=== PATIENT | female | born 1935 | race Caucasian/White ===

== ENCOUNTER 2016-04-13 20:09 | Outpatient (CLI) | payer MEDICARE | END 2016-04-13 20:10 | disposition home or self-care (01) | DX: Z53.9 Procedure and treatment not carried out, unspecified reason (principal) ==

== ENCOUNTER 2016-04-14 08:39 | Outpatient (CLI) | payer MEDICARE | END 2016-04-14 08:40 | disposition home or self-care (01) | DX: J90 Pleural effusion, not elsewhere classified (principal); I10 Essential (primary) hypertension; R41.82 Altered mental status, unspecified ==

== ENCOUNTER 2016-05-28 18:41 | Emergency (ER) | payer MEDICARE ==
[2016-05-28] MEDS ORDERED: BACITRACIN OINT TOP STA (20:14)
[2016-05-28] MEDS ORDERED: TETANUS/DIPHTHERIA/PERTUSSIS 0.5 ML SYRINGE IM ONE ×2 (20:14→20:19)
[2016-05-28] MEDS ORDERED: AMOX/CLAV 875 MG/125 MG TABLET PO STA (21:48)
[2016-05-28] MEDS ORDERED: AMOX/CLAV 875 MG/125 MG TABLET PO ONE (21:55)
== END 2016-05-28 22:02 | disposition home or self-care (01) ==
DX: S00.83XA Contusion of other part of head, initial encounter (principal); S00.211A Abrasion of right eyelid and periocular area, initial encounter; W01.198A Fall on same level from slipping, tripping and stumbling with subsequent striking against other object, initial encounter; Y93.K1 Activity, walking an animal; Y92.89 Other specified places as the place of occurrence of the external cause; Z23 Encounter for immunization; J32.0 Chronic maxillary sinusitis; I10 Essential (primary) hypertension; J45.909 Unspecified asthma, uncomplicated
CPT/HCPCS: 36415; 70450; 70486; 72125; 80053; 83690; 85025; 90471; 90715; 93005; 93010; 99284; 99285; A9270; G0480

== ENCOUNTER 2016-07-01 08:52 | Day surgery (SDC) | payer MEDICARE ==
[~2016-07-01 08:52] MED LIST: PHENYLEPHRINE 2.5% OPHTH 2 ML DROPS ONE
[2016-07-01] MEDS ORDERED: KETOROLAC 0.45% OPHTH DROPS OPTH ONE (09:10)
[2016-07-01] MEDS ORDERED: PROPARACAINE 0.5% OPHTH DROPS 15 ML OPTH ONE ×2 (09:10→09:54)
[2016-07-01] MEDS ORDERED: CYCLOPENTOLATE 1% OPHTH DROPS 2 ML OPTH ONE (09:10)
[2016-07-01] MEDS ORDERED: PHENYLEPHRINE 2.5% OPHTH 2 ML DROPS OPTH ONE (09:10)
[2016-07-01] MEDS ORDERED: LACTATED RINGERS 500 ML IV ONE (09:25)
[2016-07-01] MEDS ORDERED: EPINEPHrine 1 MG/ML AMP IVP ONE (09:54)
[2016-07-01] MEDS ORDERED: TIMOLOL 0.5% OPHTH DROPS OPTH ONE (09:54)
[2016-07-01] MEDS ORDERED: TRIAMCIN/MOXIFLOX/VANCO 1 ML VIAL IO ONE ×2 (09:54)
[2016-07-01] MEDS ORDERED: BSS/LIDOCAINE/EPINEPHRINE 1 ML SYRINGE IO ONE ×2 (09:54)
[2016-07-01] MEDS ORDERED: BRIMONIDINE 0.2% OPHTH DROPS 5 ML OPTH ONE (09:54)
[2016-07-01] MEDS ORDERED: CHONDR SULF/HYALURONATE SYRINGE IO ONE (09:54)
[2016-07-01] MEDS ORDERED: MIDAZOLAM 2 MG/2 ML VIAL IVP ONE (10:00)
[2016-07-01 10:26] VITALS: BP 142/75
--- NOTE | 2016-07-01 14:34 | OPERATIVE REPORT ---
DATE OF SURGERY: 07/01/2016 00:00:00 PREOPERATIVE DIAGNOSIS: Visually significant cataract, right eye. This is her first cataract surgery. POSTOPERATIVE DIAGNOSIS: Visually significant cataract, right eye. This is her first cataract surgery . NAME OF PROCEDURE: Phacoemulsification posterior chamber intraocular lens implant, right eye with las er assist. SURGEON: Zach Rico MD. ANESTHESIA: Monitored anesthesia care. COMPLICATIONS: None. OPERATIVE INDICATIONS: This is a 80-year-old woman with progressive vision loss in the right eye due to 4+ nuclear sclerotic and vacuolar cataract. Best corrected visual acuity was 20/40 with glare to 2 0/125 in the right eye. INDICATIONS FOR SURGERY: Overall decrease in vision, difficulty seeing street signs, difficulty drivi ng in low light or at night, difficulty driving at night because of headlights from other vehicles or street lights, difficulty with glare or bright lights in any situation, difficulty reading. She was consented at length concerning the risks and benefits of cataract surgery, after which she expressed a desire to proceed with surgery. OPERATIVE PROCEDURE: The patient was taken to OR #2 and placed under monitored anesthesia care. A aaron gical time-out was conducted confirming the correct patient, correct procedure and correct surgical s ite. She was placed in the LenSx laser and her eye docked to the laser interface. The laser performed the capsulotomy, lens softening, phaco wounds, and arcuate keratotomy incisions. She was then moved to the operating microscope, given topical anesthesia, and then prepped and draped in the usual steri le fashion. The eye was entered at the 12 and 9 o'clock positions. Intracameral Shugarcaine was injec adelina into the anterior chamber, followed by Viscoat. Capsulorrhexis flap created by the LenSx laser wa s removed from the anterior chamber. The nucleus was hydrodissected and phacoemulsified. The cortex w as evacuated using automated infusion aspiration. Provisc was injected in the capsular bag and a 26.5 diopter intraocular lens inserted into the bag. Approximately 0.8 mL of a mixture of triamcinolone, moxifloxacin, and vancomycin was injected subconjunctivally in the superior quadrant for infection an d inflammation prophylaxis. I/A was used to evacuate the viscoelastic materials. The eye was inflated to a physiologic pressure using balanced salt solution and found to be watertight. The patient was t akmoises from the operating room in good condition and given postoperative instructions. JOB #: [id number] EXT JOB #:[id number]
== END 2016-07-01 08:53 | disposition home or self-care (01) ==
LOC: SDS 08:52
PROVIDERS: ATTEND Ophthalmology
PROC: 08RJ3JZ Replacement of Right Lens with Synthetic Substitute, Percutaneous Approach (ICD-10-PCS; principal; 2016-07-01 10:30)
DX: H25.811 Combined forms of age-related cataract, right eye (principal); J45.909 Unspecified asthma, uncomplicated; Z87.01 Personal history of pneumonia (recurrent); I10 Essential (primary) hypertension
CPT/HCPCS: 66984; A9270; V2632

== ENCOUNTER 2017-09-01 08:32 | Day surgery (SDC) | payer MEDICARE ==
[~2017-09-01 08:32] MED LIST changes: +BRIMONIDINE 0.2% OPHTH DROPS 5 ML ONE; +BSS/LIDOCAINE/EPINEPHRINE 1 ML SYRINGE ONE; +CYCLOPENTOLATE 1% OPHTH DROPS 2 ML ONE; +EPINEPHrine 1 MG/ML AMP ONE; +KETOROLAC 0.45% OPHTH DROPS ONE; +LACTATED RINGERS 500 ML IV ONE; +PROPARACAINE 0.5% OPHTH DROPS 15 ML ONE; +TIMOLOL 0.5% OPHTH DROPS ONE; +TRIAMCIN/MOXIFLOX OPHTHALMIC 0.6 ML VIAL IO ONE; +VANCOMYCIN OPHTHALMI 8MG/0.8ML 8 MG/0.8 ML SYRINGE IO ONE
[2017-09-01] MEDS ORDERED: PROPARACAINE 0.5% OPHTH DROPS 15 ML LEFTEYE ONE ×2 (09:00→09:25)
[2017-09-01] MEDS ORDERED: KETOROLAC 0.45% OPHTH DROPS LEFTEYE ONE (09:00)
[2017-09-01] MEDS ORDERED: PHENYLEPHRINE 2.5% OPHTH 2 ML DROPS LEFTEYE ONE (09:00)
[2017-09-01] MEDS ORDERED: CYCLOPENTOLATE 1% OPHTH DROPS 2 ML LEFTEYE ONE (09:00)
[2017-09-01] MEDS ORDERED: BRIMONIDINE 0.2% OPHTH DROPS 5 ML OPTH ONE (09:23)
[2017-09-01] MEDS ORDERED: BSS/LIDOCAINE/EPINEPHRINE 1 ML SYRINGE IO ONE (09:24)
[2017-09-01] MEDS ORDERED: EPINEPHrine 1 MG/ML AMP IR ONE (09:24)
[2017-09-01] MEDS ORDERED: CHONDR SULF/HYALURONATE SYRINGE IO ONE (09:24)
[2017-09-01] MEDS ORDERED: TIMOLOL 0.5% OPHTH DROPS OPTH ONE (09:24)
[2017-09-01] MEDS ORDERED: MIDAZOLAM 2 MG/2 ML VIAL IVP ONE (09:27)
[2017-09-01] MEDS ORDERED: BSS/LIDOCAINE/EPINEPHRINE 1 ML SYRINGE ONE (09:44)
[2017-09-01 10:17] VITALS: BP 121/52
--- NOTE | 2017-09-01 11:01 | OPERATIVE REPORT ---
DATE OF SERVICE: 09/01/2017 Physician: Zach Rico MD PREOPERATIVE DIAGNOSIS: Visually significant cataract, left eye. Cataract surgery was performed on the right eye on July 01, 2016. POSTOPERATIVE DIAGNOSIS: Visually significant cataract, left eye. Cataract surgery was performed on the right eye on July 01, 2016. NAME OF PROCEDURE: Phacoemulsification with posterior chamber intraocular lens implant, left eye. SURGEON: Zach Rico MD ANESTHESIA: Monitored anesthesia care. COMPLICATIONS: None. OPERATIVE INDICATIONS: This is an 82-year-old woman with progressive vision loss in the left eye due to 4+ nuclear sclerotic and vacuolar cataract. Best corrected visual acuity was 20/30 with glare to count fingers at 7 feet. INDICATIONS FOR SURGERY: Overall decrease in vision; difficulty seeing words, closed captions or game scores on TV; difficulty driving in low light or at night and difficulty driving at night because of headlights from other vehicles. She was consented at length concerning risks and benefits of cataract surgery, after which she expressed a desire to proceed with surgery. OPERATIVE PROCEDURE: The patient was taken into OR #3 and placed under monitored anesthesia care. A surgical timeout was conducted confirming correct patient, correct procedure and correct surgical site. She was given topical anesthesia, and then prepped and draped in the usual sterile fashion. The eye was entered at the 6 and 3 o'clock positions. Intracameral Shugarcaine was injected into the anterior chamber, followed by Viscoat. A continuous-tear curvilinear capsulorrhexis was performed. The nucleus was hydrodissected and phacoemulsified. Cortex was evacuated using automated infusion and aspiration. Provisc was injected in the capsular bag, and a 26.5 diopter intraocular lens was inserted in the bag. Approximately 0.8 mL of a mixture of triamcinolone, moxifloxacin, and vancomycin was injected subconjunctivally in the superior quadrant for infection and inflammation prophylaxis. I and A was used to evacuate the viscoelastic material. The eye was inflated to physiologic pressure using a balanced salt solution and found to be watertight. The patient was taken from the operating room in good condition and given postoperative instructions. TD: 09/01/2017 09:51
== END 2017-09-01 08:33 | disposition home or self-care (01) ==
LOC: SDS 08:32
PROVIDERS: ATTEND Ophthalmology
PROC: 08RK3JZ Replacement of Left Lens with Synthetic Substitute, Percutaneous Approach (ICD-10-PCS; principal; 2017-09-01 08:30)
DX: H25.812 Combined forms of age-related cataract, left eye (principal); I10 Essential (primary) hypertension; Z87.891 Personal history of nicotine dependence; J45.909 Unspecified asthma, uncomplicated
CPT/HCPCS: 66984; A9270; J3490; V2632

== ENCOUNTER 2017-11-25 13:11 | Outpatient (CLI) | payer MEDICARE | END 2017-11-25 13:12 | disposition critical access hospital (66) | LOC: EMS 13:11 | PROVIDERS: ATTEND Surgery | DX: M25.512 Pain in left shoulder (principal); W19.XXXA Unspecified fall, initial encounter; Y92.39 Other specified sports and athletic area as the place of occurrence of the external cause | CPT/HCPCS: A0425; A0429 ==

== ENCOUNTER 2017-11-25 13:36 | Emergency (ER) | payer MEDICARE ==
--- NOTE | 2017-11-25 14:01 | ED Physician Documentation ---
PD HPI Fall - Stated complaint Stated Complaint: GLF - Chief complaint Chief Complaint: Ext Problem - History obtained from History obtained from: Patient - History of Present Illness Mechanism of injury: Tripped Fall distance: Standing position Where injury occurred: Other (taking a class today.) Pain level max: 6 Pain level now: 4 Quality of pain: Pain, Throbbing, Aching Associated symptoms: No: LOC, AMS, Amnesia, Seizures, Ear drainage, Nasal drai nage, Neck pain, Weakness, Paresthesias, Dyspnea, Nausea / vomiting, Hematemesis, Abdominal distension Symptoms improve with: Rest Worsens with: Movement Contributing factors: No: Anticoagulated, Intoxicated - Additional information Additional information: Patient is an 82-year-old female who tripped and fell, landing on the left shoulder and striking the left side of her head. No loss of consciousness. No headache. No vomiting. No changes in her vision. Tetanus is up-to-date. She complains of left shoulder pain, worse with movement and better with rest. She is placed in a sling by EMS. She is not on any blood thinners. 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 : None HEENT: None Psych: None Musculoskeletal: None Derm: None - Past Surgical History Past Surgical History: Yes HEENT: Cataracts - Present Medications Home Medications: Ambulatory Orders Medication Instructions Recorded Confirmed Aspirin/Caffein/Dihydrocodeine 1 each PO BID 06/24/16 09/01/17 [Urjqfyo-Sgfr-Raafpdhpuremq Cap] Guaifenesin/Dextromethorphan 1 each PO DAILY 06/24/16 09/01/17 [Mucinex Dm ER 1,200-60 mg Tab] Bp Pill 09/01/17 - Allergies Allergies/Adverse Reactions: Allergies Allergy/AdvReac Type Severity Reaction Status Date / Time No Known Drug Allergies Allergy Verified 09/01/17 09:10 - Social History Does the pt smoke?: No Smoking Status: Never smoker Does the pt drink ETOH?: No Does the pt have substance abuse?: No - Immunizations Immunizations are current?: No Immunizations: TDAP >10years/unknown - POLST Patient has POLST: No PD ED PE NORMAL - Vitals Vital signs reviewed: Yes - General General: Alert and oriented X 3, No acute distress, Well developed/nourished - HEENT HEENT: PERRL, Moist mucous membranes, Pharynx benign, Other (2cm linear superficial laceration R eyebrow) - Neck Neck: Supple, no meningeal sign, No bony TTP - Cardiac Cardiac: RRR, Strong equal pulses - Respiratory Respiratory: No respiratory distress, Clear bilaterally - Abdomen Abdomen: Soft, Non tender, Non distended - Back Back: No spinal TTP - Derm Derm: Warm and dry, No rash - Extremities Extremities: Other (Tender to palpation across the left glenohumeral joint. Schroeder ited range of motion secondary to pain. No gross deformity. Neurovascularly intact including the axillary nerve. Otherwise unremarkable extremity exam. Remainder of the 3 extremities are also unremarkable) - Neuro Neuro: Alert and oriented X 3, photographs curator 2-12 intact, No motor deficit, No sensory deficit, Normal speech Eye Opening: Spontaneous Motor: Obeys Commands Verbal: Oriented GCS Score: 15 - Psych Psych: Normal mood, Normal affect Results - Vitals Vitals: Vital Signs - 24 hr 11/25/17 11/25/17 13:38 18:24 Temperature 36.7 C 36.8 C Heart Rate 111 H 81 Respiratory 18 20 Rate Blood Pressure 149/84 H 141/83 H O2 Saturation 98 97 Oxygen O2 Source Room air - Rads (name of study) L shoulder xray Radiology: Prelim report reviewed, EMP read contemporaneously, See rad report (There is bony deformity at the lateral humeral head with cortical overlap at the humeral head and neck overlap, could be chronic bony deformity versus acute impacted humeral head. Recommend a left shoulder CT without contrast to further evaluate. New small left pleural effusion. ) L shoulder CT Radiology: Prelim report reviewed, EMP read contemporaneously, See rad report (Acute comminuted left lateral humeral head fracture at the greater tuberosity with the fracture fragment moderately displaced and rotated in the posterior direction. The bones are demineralized. No definite acute humeral neck fracture is seen. The marked bone demineralization at the left humeral neck limits evaluation for a nondisplaced incomplete humeral neck fracture. An MRI of the left shoulder without contrast could further evaluate as clinically indicated. 2. Moderate left pleural effusion noted in left lower lobe consolidation. Mild lingular consolidation and these could be atelectasis. 3. See above. ) Procedures - Laceration (location) L eyebrow\ Length in cm: 2 Wound type: Linear, Superficial, Clean Neurovascular status: Sensory intact, Motor intact, Vascular intact Wound Preparation: Irrigated copiously NS, Wound explored, To the base Skin layer closure: Dermabond Other: Patient tolerated well, No complications, Neurovascular intact Complexity: Simple PD MEDICAL DECISION MAKING - ED course Complexity details: reviewed results, re-evaluated patient, considered sophia alejandra, d/w patient, d/w family ED course: Patient is an 82-year-old female who presents after a trip and fall, has a left humeral head fracture. Placed in a sling for comfort. Left eyebrow laceration was repaired with Dermabond. Tolerated well. Tetanus up-to-date. We will have her follow-up with her doctor for further care. No other acute findings. No evidence of intracranial hemorrhage or skull fracture. Head CT held. No headache. GCS 15. Patient counseled regarding signs and symptoms for which I believe and urgent re-evaluation would be necessary. Patient with good understanding of and agreement to plan and is comfortable going home at this time This document was made in part using voice recognition software. While efforts are made to proofread this document, sound alike and grammatical errors may occur. Departure - Departure Disposition: 01 Home, Self Care Clinical Impression: Pleural effusion on left Abrasion of left eyebrow Qualifiers: Encounter type: initial encounter Qualified Code(s): S00.212A - Abrasion of left eyelid and periocular area, initial encounter Fracture of humeral head, left, closed Qualifiers: Encounter type: initial encounter Qualified Code(s): S42.292A - Other displaced fracture of upper end of left humerus, initial encounter for closed fracture Condition: Good Instructions: ED Abrasion, ED Effusion Pleural, ED Fx Shoulder Follow-Up: [facility] [Provider Group] - Within 1 week WINDE,MARCELO W [Primary Care Provider] - Within 1 week Comments: You can use motrin or tylenol as needed for pain. Wear the sling until released by orthopedics. You should follow up with Dr. Meek about the fluid in your lungs. Discharge Date/Time: 11/25/17 19:08
--- NOTE | 2017-11-25 15:54 | XRAY Report ---
Reason: fall, L arm pain Procedure Date: 11/25/2017 Accession Number: [id number] / [id number] Procedure: XR - Shoulder 3 View LT CPT Code: FULL RESULT: EXAM: LEFT SHOULDER RADIOGRAPHY EXAM DATE: 11/25/2017 03:15 PM. CLINICAL HISTORY: Fall, left arm pain. COMPARISON: XR CHEST PA AND LAT 02/05/2010 2:06 PM. TECHNIQUE: 3 views. FINDINGS: Bones: Bones are demineralized. There is bony deformity at the lateral humeral head with cortical overlap at the humeral head and neck overlap, could be chronic bony deformity versus acute impacted humeral head. Recommend a left shoulder CT without contrast to further evaluate. Multiple old healed left posterior rib fracture deformities. Joints: No dislocation. Soft tissues: New small left pleural effusion. IMPRESSION: There is bony deformity at the lateral humeral head with cortical overlap at the humeral head and neck overlap, could be chronic bony deformity versus acute impacted humeral head. Recommend a left shoulder CT without contrast to further evaluate. New small left pleural effusion. RADIA
[2017-11-25] MEDS ORDERED: BACITRACIN OINT TOP STA (17:42)
--- NOTE | 2017-11-25 17:54 | CT Report ---
Reason: L shoulder injury, possible fracture Procedure Date: 11/25/2017 Accession Number: [id number] / [id number] Procedure: CT - Upper Extremity Left W/O CPT Code: FULL RESULT: EXAM: LEFT UPPER EXTREMITY CT WITHOUT CONTRAST EXAM DATE: 11/25/2017 05:02 PM. CLINICAL HISTORY: Left shoulder injury, possible fracture. COMPARISON: UPPER EXTREMITY LEFT W/O 11/25/2017 5:04 PM SHOULDER 3 VIEW LT 11/25/2017 3:15 PM. TECHNIQUE: Thin-section axial images were acquired of the shoulder without contrast. Post-processing: Coronal and sagittal reformats. Other: None. In accordance with CT protocol optimization, one or more of the following dose reduction techniques were utilized for this exam: automated exposure control, adjustment of mA and/or KV based on patient size, or use of iterative reconstructive technique. FINDINGS: Acute comminuted left lateral humeral head fracture at the greater tuberosity with the fracture fragment moderately displaced and rotated in the posterior direction. The bones are demineralized. No definite acute humeral neck fracture is seen. No dislocation. Only minimal glenohumeral degenerative joint disease. Small bone spur off the inferior aspect of the acromion. Chronic healed fracture deformity at the left distal clavicle multiple old healed left posterior rib fracture deformities at the third, fourth, fifth, and sixth ribs. Moderate left pleural effusion and left lower lobe consolidation. Mild lingular consolidation and these could be atelectasis. No pneumothorax. IMPRESSION: 1. Acute comminuted left lateral humeral head fracture at the greater tuberosity with the fracture fragment moderately displaced and rotated in the posterior direction. The bones are demineralized. No definite acute humeral neck fracture is seen. The marked bone demineralization at the left humeral neck limits evaluation for a nondisplaced incomplete humeral neck fracture. An MRI of the left shoulder without contrast could further evaluate as clinically indicated. 2. Moderate left pleural effusion noted in left lower lobe consolidation. Mild lingular consolidation and these could be atelectasis. 3. See above. RADIA
[2017-11-25] MEDS ORDERED: ACETAMINOPHEN 325 MG TABLET PO STA (18:01)
[2017-11-25 18:27] VITALS: BP 141/83
== END 2017-11-25 19:08 | disposition home or self-care (01) ==
LOC: EDUNIT# → ED 13:36
DX: S42.252A Displaced fracture of greater tuberosity of left humerus, initial encounter for closed fracture (principal); S01.112A Laceration without foreign body of left eyelid and periocular area, initial encounter; J90 Pleural effusion, not elsewhere classified; Y92.89 Other specified places as the place of occurrence of the external cause; W01.198A Fall on same level from slipping, tripping and stumbling with subsequent striking against other object, initial encounter; I10 Essential (primary) hypertension; Y93.89 Activity, other specified
CPT/HCPCS: 12011; 73030; 73200; 99284; A9270

== ENCOUNTER 2017-12-19 09:22 | Outpatient (CLI) | payer MEDICARE ==
--- NOTE | 2017-12-19 11:02 | DEXA Report ---
Reason: BONE THINNING NOTED ON RECENT XR Procedure Date: 12/19/2017 Accession Number: [id number] / [id number] Procedure: DEX - Dexa Spine and/or Hip CPT Code: FULL RESULT: EXAM: Dexa Spine and/or Hip DATE: 12/19/2017 9:49 AM CLINICAL HISTORY: BONE THINNING NOTED ON RECENT XR TECHNIQUE: Dual energy x-ray absorptiometry (DXA) was performed on a [employer] System. Regions measured are the AP Spine, femoral neck, and if needed forearm. COMPARISON: None. In accordance with the International Society for Clinical Densitometry (ISCD) guidelines, data from previous exams may be reanalyzed using current recommendations and techniques. This is done to allow a more accurate basis for comparison with the current study. FINDINGS: The data for the lumbar spine is as follows: BMD (g/cm/cm) T-SCORE Z-SCORE REGION L1 1.008 -1.0 1.1 L2 1.057 -1.2 0.9 L3 1.119 -0.7 1.4 L4 1.035 -1.4 0.7 TOTAL 1.054 -1.1 1.0 NOTE: All evaluable vertebrae are used for classification The data for the hip is as follows: BMD (g/cm/cm) T-SCORE Z-SCORE REGION Neck 0.727 -2.2 0.1 TOTAL 0.719 -2.3 -0.1 NOTE: The femoral neck or total proximal femur, whichever is lowest, is used for classification. IMPRESSION: THE WHO CLASSIFICATION BASED ON THE INTERNATIONAL REFERENCE STANDARD IS OSTEOPENIA. THE FRACTURE RISK IS INCREASED. RECOMMENDATION: Patients with diagnosis of osteoporosis or osteopenia should have regular bone mineral density assessment. For those eligible for Medicare, routine testing is allowed once every 2 years. Testing frequency can be increased for patients who have rapidly progressing disease or for those who are receiving medical therapy to restore bone mass. COMMENT: World Health Organization (WHO) definitions for osteoporosis and osteopenia: NORMAL BMD: T-score at -1.0 or higher, fracture risk is low OSTEOPENIA BMD: T-score between -1.0 and -2.5, fracture risk is increased. OSTEOPOROSIS BMD: T-score at -2.5 or lower, fracture risk is high. National Osteoporosis Foundation recommends: 1. Obtain adequate dietary calcium (at least 1200 mg per day) and vitamin D (400-800 international units per day). 2. Participate, as appropriate, in regular weightbearing and muscle-strengthening exercise. 3. Avoid tobacco use and reduce alcohol and caffeine intake. 4. For more detailed information see the website at www.NOF.org.
== END 2017-12-19 09:23 | disposition home or self-care (01) ==
LOC: DI 09:22
PROVIDERS: ATTEND Internal Medicine
DX: Z13.820 Encounter for screening for osteoporosis (principal); M85.89 Other specified disorders of bone density and structure, multiple sites; N95.8 Other specified menopausal and perimenopausal disorders
CPT/HCPCS: 77080

== ENCOUNTER 2018-01-06 12:15 | Outpatient (CLI) | payer MEDICARE ==
--- NOTE | 2018-01-06 12:44 | XRAY Report ---
Reason: PLEURAL EFFUSION,NOT ELSEWHERE CLASSIFIED Procedure Date: 01/06/2018 Accession Number: [id number] / [id number] Procedure: XR - Chest 2 View X-Ray CPT Code: 23287 FULL RESULT: EXAM: CHEST RADIOGRAPHY EXAM DATE: 01/06/2018 12:31 PM. CLINICAL HISTORY: Pleural effusion, not elsewhere classified. COMPARISON: SHOULDER 3 VIEW LT 12/19/2017 1:55 PM. TECHNIQUE: 2 views. FINDINGS: Lungs/Pleura: Redemonstration of an at least moderate left pleural effusion in the setting of ongoing healing of malaligned rib fractures, not acute. The aerated lung demonstrates no acute airspace disease with the exception of a linear density at the right lung base with an appearance suggestive of atelectasis. No pneumothorax. Mediastinum: The cardiomediastinal silhouette is partially obscured. Note is made of aortic arch calcifications. Other: None. IMPRESSION: Moderate left pleural effusion, possibly posttraumatic. RADIA
== END 2018-01-06 12:16 | disposition home or self-care (01) ==
LOC: DI 12:15
PROVIDERS: ATTEND Internal Medicine
DX: J90 Pleural effusion, not elsewhere classified (principal)
CPT/HCPCS: 71046

== ENCOUNTER 2018-03-09 12:49 | Outpatient (CLI) | payer MEDICARE ==
--- NOTE | 2018-03-09 15:08 | XRAY Report ---
Reason: PLEURAL EFFUSION Procedure Date: 03/09/2018 Accession Number: [id number] / [id number] Procedure: XR - Chest 2 View X-Ray CPT Code: 92625 FULL RESULT: EXAM: CHEST RADIOGRAPHY EXAM DATE: 03/09/2018 01:36 PM. CLINICAL HISTORY: Pleural effusion. COMPARISON: Shoulder 2 view left 01/25/2018 3:13 PM. Chest 2 view 01/06/2018 12:21 PM. TECHNIQUE: 2 views. FINDINGS: Lungs/Pleura: Moderate left pleural effusion, unchanged compared to December 2017. Right lung is clear. Aerated left lung is unremarkable. No pneumothorax. Mediastinum: Cardiomediastinal silhouette limited in evaluation due to pleural effusion. Visualized portions are stable. Aortic arch is calcified. Other: None. IMPRESSION: Stable exam. RADIA
== END 2018-03-09 12:50 | disposition home or self-care (01) ==
LOC: DI 12:49
PROVIDERS: ATTEND Internal Medicine
DX: J90 Pleural effusion, not elsewhere classified (principal)
CPT/HCPCS: 71046

== ENCOUNTER 2018-06-02 12:37 | Outpatient (CLI) | payer MEDICARE ==
--- NOTE | 2018-06-02 14:25 | XRAY Report ---
Reason: PLEURAL EFFUSION Procedure Date: 06/02/2018 Accession Number: [id number] / [id number] Procedure: XR - Chest 2 View X-Ray CPT Code: 93414 FULL RESULT: EXAM: CHEST RADIOGRAPHY EXAM DATE: 06/02/2018 01:12 PM. CLINICAL HISTORY: PLEURAL EFFUSION. Slight left chest pain with deep breathing. COMPARISON: CHEST 2 VIEW 03/09/2018 1:24 PM XR CHEST PA AND LAT 02/05/2010 2:06 PM. TECHNIQUE: 2 views. FINDINGS: Lungs/Pleura: Moderate left pleural effusion. Mediastinum: Prominent atherosclerotic aortic calcifications. Tortuous thoracic aorta. There is some rightward shift of the heart, likely related to left pleural effusion. Other: Multiple old, healed posterolateral left upper rib fractures with associated deformity. Bones appear osteopenic. IMPRESSION: Moderate left pleural effusion with similar appearance compared to 03/09/2018 chest x-ray. RADIA
== END 2018-06-02 12:38 | disposition home or self-care (01) ==
LOC: DI 12:37
PROVIDERS: ATTEND Internal Medicine
DX: J90 Pleural effusion, not elsewhere classified (principal)
CPT/HCPCS: 71046

== ENCOUNTER 2018-11-15 11:45 | Outpatient (CLI) | payer MEDICARE ==
--- NOTE | 2018-11-16 16:06 | XRAY Report ---
Reason: PLEURAL EFFUSION Procedure Date: 11/15/2018 Accession Number: [id number] / [id number] Procedure: XR - Chest 2 View X-Ray CPT Code: 21060 FULL RESULT: EXAM: CHEST RADIOGRAPHY EXAM DATE: 11/15/2018 12:09 PM. CLINICAL HISTORY: PLEURAL EFFUSION. COMPARISON: CHEST 2 VIEW 06/02/2018 1:02 PM. TECHNIQUE: 2 views. FINDINGS: LUNGS: Increased lipase opacity. PLEURA: Large left pleural effusion, increased from prior. No clinically significant pneumothorax. MEDIASTINUM: The cardiac silhouette is poorly evaluated secondary to left pleural effusion but appears enlarged. The aorta is calcified tortuous. BONES: No suspicious osseous lesions. Again old left rib fracture deformities. IMPRESSION: 1. Large left pleural effusion, increased from prior. 2. Worsening left base opacity. RADIA
== END 2018-11-15 11:46 | disposition home or self-care (01) ==
LOC: DI 11:45
PROVIDERS: ATTEND Nurse Practitioner Family
DX: J90 Pleural effusion, not elsewhere classified (principal)
CPT/HCPCS: 71046

== ENCOUNTER 2019-10-11 23:25 | Inpatient (IN) | payer MEDICARE ==
[2019-10-12 00:25] LABS: BASOPHILS % (AUTO) 0.8 %; EOSINOPHILS % (AUTO) 1.9 %; HGB - HEMOGLOBIN 9.7 g/dL (12.0-16.0); LYMPHOCYTES % (AUTO) 11.1 %; MEAN CORPUSCULAR HEMOGLOBIN 31.1 pg (27.0-31.0); MEAN CORPUSCULAR HGB CONC 32.6 g/dL (32.0-36.0); MEAN CORPUSCULAR VOLUME 95.5 fL (81.0-99.0); MEAN PLATELET VOLUME 9.5 fL (7.9-10.8); MONOCYTES % (AUTO) 10.1 %; NEUTROPHILS % (AUTO) 74.3 %; PLT - PLATELET COUNT 258 10^3/uL (130-450); RED BLOOD COUNT 3.12 10^6/uL (4.20-5.40); RED CELL DISTRIBUTION WIDTH 13.6 % (12.0-15.0); WHITE BLOOD COUNT 8.3 x10^3/uL (4.8-10.8)
[2019-10-12 00:27] LABS: ABNORMAL LYMPHS % (MANUAL) 0 %
[2019-10-12 00:33] LABS: ALBUMIN 2.7 g/dL (3.2-5.5); ALBUMIN/GLOBULIN RATIO 0.6 (1.0-2.2); BILIRUBIN,TOTAL 0.8 mg/dL (0.2-1.0); CALCIUM 8.5 mg/dL (8.5-10.3); CREATININE 2.7 mg/dL (0.4-1.0)
[2019-10-12 01:01] LABS: BILIRUBIN,URINE NEGATIVE (NEGATIVE); GLUCOSE, URINE (UA) NEGATIVE (NEGATIVE); KETONES,URINE (UA) NEGATIVE (NEGATIVE); LEUKOCYTE ESTERASE, URINE TRACE (NEGATIVE); NITRITE,URINE NEGATIVE (NEGATIVE); OCCULT BLOOD,URINE TRACE-INTA (NEGATIVE); PROTEIN,URINE 30 mg/dL (NEGATIVE); UROBILINOGEN,URINE 1 (NORMAL) E.U./dL (NORMAL)
[2019-10-12 01:04] LABS: BAND NEUTROPHILS % (MANUAL) 15 %; DIFFERENTIAL COMMENT MANUAL DIFFERENTIAL; EOSINOPHILS # (MANUAL) 0.2 10^3/uL (0-0.7); LYMPHOCYTES # (MANUAL) 0.9 10^3/uL (1.5-3.5); LYMPHOCYTES % (MANUAL) 11 %; METAMYELOCYTES % (MANUAL) 1 %; MONOCYTES # (MANUAL) 0.7 10^3/uL (0.0-1.0); MYELOCYTES % (MANUAL) 1 %; PLATELET ESTIMATE, MANUAL NORMAL (130-450,000) (NORMAL); RBC MORPHOLOGY (MULTIPLE) NORMAL APPEARANCE (NORMAL)
[2019-10-12 01:05] LABS: CLARITY,URINE HAZY (CLEAR)
[2019-10-12] MEDS ORDERED: ONDANSETRON ODT 4 MG TABLET TL PRN (01:08)
[2019-10-12] MEDS ORDERED: ONDANSETRON 4 MG/2 ML VIAL IVP PRN (01:08)
--- NOTE | 2019-10-12 01:11 | ED Physician Documentation ---
History of Present Illness - Stated complaint Stated Complaint: ALL OVER PX/FEVER - Chief complaint Chief Complaint: General - History obtained from History obtained from: Patient, Family - History of Present Illness Timing: Other (various c/o over different timeframes) Pain level now: 2 Improved by: rest Worsened by: exertion (cough, dyspnea) - Additonal information Additional information: various c/o over different timeframes. had generalized aches and myalgias, fatigue 1-2 days, bruna she might have a fever but did not have elevated temperature until this evening when she has 100.5 oral temperature at home, took two excedrin UNDERCOAT SPRAYER. also c/o several days of abdominal bloating, mild cramping discomfort with loose stools. decreased appetite and PO intake all day. 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 Review of Systems Constitutional: reports: Fever (Tmax 100.5), Myalgias, Fatigue. denies: Sweats Eyes: reports: Discharge Nose: reports: Rhinorrhea / runny nose, Congestion Throat: denies: Sore throat Cardiac: reports: Pedal edema. denies: Chest pain / pressure, Palpitations Respiratory: reports: Dyspnea, Cough GI: reports: Abdominal Pain (mild, genralized cramping, intermittent), Abdominal Swelling, Diarrhea. denies: Vomiting : denies: Dysuria, Frequency Skin: denies: Rash Neurologic: reports: Generalized weakness. denies: Focal weakness PD PAST MEDICAL HISTORY - Past Medical History Past Medical History: Yes Cardiovascular: Hypertension Respiratory: Asthma Neuro: None Endocrine/Autoimmune: None GI: None WELD INSPECTOR: None : None HEENT: None Psych: None Musculoskeletal: None Derm: None - Past Surgical History Past Surgical History: Yes HEENT: Cataracts - Present Medications Home Medications: Ambulatory Orders Medication Instructions Recorded Confirmed Aspirin/Caffein/Dihydrocodeine 1 each PO BID 06/24/16 10/12/19 [Jawocbi-Yzdm-Dlscbamgefksf Cap] Budesonide/Formoterol Fumarate 2 puffs IH BID 10/12/19 10/12/19 [Symbicort 80-4.5 Mcg Inhaler] amLODIPine [Norvasc] 5 mg PO DAILY 10/12/19 10/12/19 - Allergies Allergies/Adverse Reactions: Allergies Allergy/AdvReac Type Severity Reaction Status Date / Time No Known Drug Allergies Allergy Verified 10/11/19 23:46 - Social History Does the pt smoke?: No Smoking Status: Never smoker Does the pt drink ETOH?: No Does the pt have substance abuse?: No - Immunizations Immunizations are current?: No Immunizations: TDAP >10years/unknown - POLST Patient has POLST: No PD ED PE NORMAL - Vitals Vital signs reviewed: Yes - General General: Alert and oriented X 3, No acute distress, Well developed/nourished - HEENT HEENT: Other (tacky/pasty mucous membranes) - Neck Neck: Supple, no meningeal sign - Cardiac Cardiac: RRR - Respiratory Respiratory: No respiratory distress, Clear bilaterally - Abdomen Abdomen: Soft, Non tender - Back Back: No CVA TTP - Derm Derm: Normal color, Warm and dry - Neuro Neuro: Alert and oriented X 3 PD ED PE EXPANDED - Cardiac Cardiac: Murmur Present - Abdomen Abdomen: Distended Results - Vitals Vitals: Vital Signs - 24 hr 10/11/19 10/11/19 10/12/19 23:25 23:52 00:55 Temperature 37.8 C H Heart Rate 106 H 106 H 91 Respiratory 20 33 H 16 Rate Blood Pressure 127/68 127/68 166/73 H O2 Saturation 96 95 97 Oxygen O2 Source Room air - Labs Labs: Microbiology 10/12/19 00:55 Urine Culture - Preliminary Urine,Clean Catch CULTURE IN PROGRESS. RESULTS TO FOLLOW. Laboratory Tests 10/12/19 10/12/19 10/12/19 00:10 00:10 00:10 WBC 8.3 RBC 3.12 L Hgb 9.7 L Hct 29.8 L MCV 95.5 MCH 31.1 H MCHC 32.6 RDW 13.6 Plt Count 258 MPV 9.5 Neut # (Auto) Not Reportable Lymph # (Auto) Not Reportable Pickaway # (Auto) Not Reportable Eos # (Auto) Not Reportable Baso # (Auto) Not Reportable Absolute Nucleated RBC Not Reportable Total Counted 100 Band Neuts % (Manual) 15 H Abnorm Lymph % (Manual) 0 Metamyelocytes % 1 H Myelocytes % 1 H Nucleated RBC % Not Reportable Neutrophils # (Manual) 6.4 Lymphocytes # (Manual) 0.9 L Monocytes # (Manual) 0.7 Eosinophils # (Manual) 0.2 Basophils # (Manual) 0.0 Differential Comment MANUAL DIFFERENTIAL Platelet Estimate NORMAL (130-450,000) RBC Morph Micro Appear NORMAL APPEARANCE Sodium 135 Potassium 3.2 L Chloride 106 Carbon Dioxide 18 L Anion Gap 11.0 BUN 43 H Creatinine 2.7 H Estimated GFR (MDRD) 17 L Glucose 139 H Calcium 8.5 Total Bilirubin 0.8 AST 19 ALT 12 Alkaline Phosphatase 144 H B-Natriuretic Peptide 154 H Total Protein 7.0 Albumin 2.7 L Globulin 4.3 H Albumin/Globulin Ratio 0.6 L Lipase 28 TSH Urine Color Urine Clarity Urine pH Ur Specific Turney Urine Protein Urine Glucose (UA) Urine Ketones Urine Occult Blood Urine Nitrite Urine Bilirubin Urine Urobilinogen Ur Leukocyte Esterase Urine RBC Urine WBC Ur Squamous Epith Cells Urine Bacteria Urine Casts Ur Microscopic Review Urine Culture Comments 10/12/19 10/12/19 00:10 00:55 WBC RBC Hgb Hct MCV MCH MCHC RDW Plt Count MPV Neut # (Auto) Lymph # (Auto) Pickaway # (Auto) Eos # (Auto) Baso # (Auto) Absolute Nucleated RBC Total Counted Band Neuts % (Manual) Abnorm Lymph % (Manual) Metamyelocytes % Myelocytes % Nucleated RBC % Neutrophils # (Manual) Lymphocytes # (Manual) Monocytes # (Manual) Eosinophils # (Manual) Basophils # (Manual) Differential Comment Platelet Estimate RBC Morph Micro Appear Sodium Potassium Chloride Carbon Dioxide Anion Gap BUN Creatinine Estimated GFR (MDRD) Glucose Calcium Total Bilirubin AST ALT Alkaline Phosphatase B-Natriuretic Peptide Total Protein Albumin Globulin Albumin/Globulin Ratio Lipase TSH 3.12 Urine Color YELLOW Urine Clarity HAZY Urine pH 6.0 Ur Specific Turney 1.020 Urine Protein 30 H Urine Glucose (UA) NEGATIVE Urine Ketones NEGATIVE Urine Occult Blood TRACE-INTA Urine Nitrite NEGATIVE Urine Bilirubin NEGATIVE Urine Urobilinogen 1 (NORMAL) Ur Leukocyte Esterase TRACE H Urine RBC 0-5 Urine WBC 6-10 H Ur Squamous Epith Cells FEW Squamous Urine Bacteria Few Urine Casts 0-2 Course Granular Ur Microscopic Review INDICATED Urine Culture Comments INDICATED - Rads (name of study) chest xray Radiology: Prelim report reviewed, See rad report PD MEDICAL DECISION MAKING - ED course Complexity details: reviewed old records, reviewed results, re-evaluated patient, considered differential, d/w patient Departure - Departure Disposition: 66 [facility] DC/Xfer Clinical Impression: Pneumonia Qualifiers: Pneumonia type: due to unspecified organism Laterality: bilateral Lung location: unspecified part of lung Qualified Code(s): J18.9 - Pneumonia, unspecified organism Condition: Stable Discharge Date/Time: 10/12/19 02:10
[2019-10-12 01:12] LABS: BACTERIA,URINE Few /HPF (None Seen); CASTS, URINE 0-2 Course Granular /LPF; RBC,URINE 0-5 /HPF (0-5); SQUAMOUS EPITHELIAL CELL,UR FEW Squamous (<= Few)
--- NOTE | 2019-10-12 02:04 | HISTORY & PHYSICAL EXAMINATION ---
Chief Complaint - Chief Complaint Chief Complaint: swollen feet, cough, abd distension History of Present Illness - Admitted From Admitted From:: POV from home - History Obtained From Records Reviewed: [facility] History obtained from: Daughter, patient Exam Limitations: patient has hearing loss - History of Present Illness HPI Comment/Other: Larissa female whose only past medical history is that of hypertension. She said that she has had asthma all of her life and uses antihistamines that are [id number] to control the cough and postnasal drip. It happened several times a year and this cycle will be broken by taking Mucinex. Inhalers do not work. She fell at the gym last year, and had a lung contusion resulting in a chronic pleural effusion. She was seen at [facility] and ended up having 2 thoracentesis and then finally a VATS procedure in January 2019. As far she knows she has no cardiac issues. She was not diagnosed with cancer or tuberculosis. She had a period of time being symptom-free from February on. Her main complaint is bilateral lower extremity weakness. She finds that her legs g verónica out from underneath her for about 2 years without any explanation. She has been a little stir crazy having to be inside her [facility] and [place] because of COVID restrictions. About a month and a half ago she noted that she was very winded. More short of breath. And that the cough was coming back. The cough was different than her usual "asthma" cough but she could not say why. She says that there is more sputum production than usual. No fever, no chills, no sweats. 5 days ago she had diarrhea for about 2 or 3 days. The diarrhea was once or twice a day of liquid clear stool. No blood. She has not had any appetite. She can smell and can taste food but she just does not have an appetite. Her primary care provider did a chest x-ray on September 18 and it shows a small left pleural effusion. She had a flu shot a couple of days ago and noted that the next day, yesterday, she aches all over. Especially over where the flu shot was given. Again no fever or chills. For the last 2 days her eyes have been swollen shut with conjunctival matter in the morning. She called her predictive maintenance technician, Dr. Rico yesterday. He is going to see her next week. Today she just "did not look right" so her daughter brought her in. She is worried about the swollen ankles, and the cough that does not go away. This time it is not responsive to her Mucinex as it usually is. In the emergency room temperature was 37.8. Pulse was 106. Blood pressure 127/68 with respirations 20 and 96% on room air. She is hypokalemic at 3.2. In new kidney insufficiency with a BUN of 43 and a creatinine of 2.7. Alk phos is elevated. BNP is mildly elevated at 154. White cell count is normal. Anemic at 9.7 with an MCV of 95. Urinalysis is proteinuria, trace leukocyte Estrace, white cells and red cells but she does have squamous cells. Preliminary chest x-ray has bilateral pulmonary infiltrates and a pleural effusion, left greater than right, progressive when compared to the September 18, 2027 chest x-ray. History - Past Medical History Cardiovascular: reports: Hypertension Respiratory: reports: Asthma, Other (Chronic pleural effusion 2018, status post VATS procedure January 2019 at [facility]) Neuro: reports: None Endocrine/Autoimmune: reports: None GI: reports: None BOX ATTACHER: reports: Other ([id number]) : reports: Incontinence HEENT: reports: Chronic hearing loss, Other (Partial upper and lower dentures, cataracts,) Psych: reports: None Musculoskeletal: reports: Osteoarthritis (Shoulders and lower back), Chronic back pain (Mild and lumbar spine associated with increasing bilateral leg weakness and 2 falls over the last year) Derm: reports: None MRSA Hx?: No Other Past Medical History: Pleural Effusion L side of lung - Past Surgical History HEENT: reports: Cataracts - Family & Social History Family History Comment/Other: She did not know her father or when he or what he of. Mom in her 70s of unknown causes. No siblings. 3 children are completely healthy without high blood pressure, diabetes, cancer or heart attack Living arrangement: At home Living Situation: Alone Social History Notes: She is from [place], [place]. Spent her life in that small town and using a small dingy boat to get over to [facility] to go to school and take care of kids to babysit. 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 She was for 30 years and her 33 years ago. She has been single since then. She moved to [facility] approximately 8 years ago. She lives in her own [facility] in [place]. She moved to [facility] to be close to 1 of her daughters who is a mexican food maker hand. Daughter lives in [place]. They are thinking of moving her from the [facility] and [place] to a small cottage in [place] to be even closer to her daughter. She started smoking at the age of 19 and smoked 1 pack/day until 1989. As such she smoked approximately 35 years. She does not have a history of alcohol abuse. She has no history of recreational substance abuse. - Substance History Use: Uses substance without health or social issues: NONE Abuse: Recurrent use of substance despite neg consequences: NONE Dependence: Experiences withdrawal or developed tolerances: NONE - POLST Patient has POLST: No POLST Status: Full Code Meds/Allgy - Home Medications Home Medications: Ambulatory Orders Medication Instructions Recorded Confirmed Aspirin/Caffein/Dihydrocodeine 1 each PO BID 06/24/16 09/01/17 [Ficmwfw-Ewgv-Fskvwyesbsmpy Cap] Guaifenesin/Dextromethorphan 1 each PO DAILY 06/24/16 09/01/17 [Mucinex Dm ER 1,200-60 mg Tab] Bp Pill 09/01/17 - Allergies Allergies/Adverse Reactions: Allergies Allergy/AdvReac Type Severity Reaction Status Date / Time No Known Drug Allergies Allergy Verified 10/11/19 23:46 Review of Systems - Constitutional Constitutional: reports: Fatigue, Malaise, Weakness, Poor appetite. denies: Fever, Chills, Diaphoresis, Night sweats - Eyes Eyes: reports: Other (Copious white matter gluing her eyes shut in the morning for the last 2 days) - Ears, Nose & Throat Ears, Nose & Throat: reports: Ear pain (Left greater than right. When she coughs, she can feel pain and pressure in both ears.), Hearing loss (Chronic and worse over the last week), Postnasal drainage, Dentures, Other (Can still smell and taste food. That is not a problem. She just does not want to eat it.). denies: Hearing aids, Tinnitus, Vertigo, Sore throat, Hoarseness - Cardiovascular Cariovascular: reports: Edema, Exertional dyspnea, Decr. exercise tolerance. denies: Irregular heart rate, Palpitations, Chest pain - Respiratory Respiratory: reports: Cough, SOB with exertion. denies: Sputum production, Wheezing, Snoring, Orthopnea, SOB at rest - Gastrointestinal Gastrointestinal: reports: Abdominal distention, Diarrhea, Bloating, Poor appetite, Other (With coughing she has had rectal incontinence this last week that is very distressing). denies: Rectal bleeding, Black stools, Bloody stools, Nausea, Vomiting, Bile emesis, Mando blood emesis, Coffee grounds emesis, Reflux/heartburn - Genitourinary Genitourinary: reports: Incontinence. denies: Dysuria, Frequency, Urgency, Hematuria - Musculoskeletal Musculoskeletal: reports: Back pain, Muscle aches (Diffuse), Joint pain (Especially over left shoulder) - Integumentary Integumentary: denies: Rash, Pruritis, Lesions, Dryness - Neurological Neurological: reports: General weakness. denies: Focal weakness, Headache, Dizziness, Numbness, Memory problems - Psychiatric Psychiatric: denies: Depression, Anxiety, Suicidal - Endocrine Endocrine: denies: Polyuria, Polydypsia, Polyphagia - Hematologic/Lymphatic Hematologic/Lymphatic: denies: Anemia, Bruising, Petechiae Prior Level of Functionality: She is still driving. But daughter is uncomfortable with that wishes mom did not. She uses a cane. She used to use a walker but left it with her last [place] trip in [place]. She is able to feed herself, dress herself, do her own laundry. However she has a tower air traffic control specialist and a plastics engineering teacher to take care of the house. Sometimes she pays her bills, but she is getting forgetful so daughter is taking care of that. Exam - Vital Signs Reviewed Vital Signs: Yes Vital Signs: Vital Signs x48h Temp Pulse Resp BP Pulse Ox 10/12/19 00:55 91 16 166/73 H 97 10/11/19 23:52 106 H 33 H 127/68 95 10/11/19 23:25 37.8 C H 106 H 20 127 96 - Physical Exam General Appearance: positive: No acute distress, Alert, Other (5 foot 4 inch female who weighs 58.967 kg. Bilingual. Speaking through a nasal tone of voice, but no respiratory distress) Eyes Bilateral: positive: Other (Pupils irregular due to old cataract surgery. Sclera nonicteric. Bilateral conjunctival swelling and grayish-white matter) ENT: positive: Dry mucous membranes, Other (Cobblestoning of the posterior pharynx but no redness, no exudate) Neck: positive: No JVD, Lymphadenopathy (R) (Mildly tender, shotty), Lympha denopathy (L) (Mildly tender, shotty). negative: Stiff neck, Carotid bruit Respiratory: positive: Chest non-tender, No respiratory distress, Rales, Rhonchi. negative: Wheezes Cardiovascular: positive: Regular rate & rhythm, Tachycardia, Systolic murmur. negative: Gallop/S4, Friction rub Abdomen: positive: Non-tender, No organomegaly, Other (Diffuse distention, mild and tympanitic, gassy) Back: negative: CVA tenderness (R) Skin: positive: No rash, Warm, Pallor Extremities: positive: Pedal edema, Other (Right shoulder with intact passive range of motion. Left shoulder hurts to abduct when I try and move it. No effusion or warmth.) Neurologic/Psychiatric: positive: Oriented x3, Motor nml, Sensation nml. negative: CN's nml (2-12) (Moderate hearing loss) Conclusion/Plan - Problem List (1) Pneumonia Conclusion/Plan: Her chest x-ray is quite impressive in its severity in contrast to her relative lack of fever, white cell count. With the sore throat, runny nose, eustachian tube dysfunction, Cough she may have viral pneumonia. With the addition of symptoms of diarrhea, she may have mycoplasma. There is a history of recurrent pleural effusions from last year. Mainly unilateral. At that time TB negative.Her BNP is not that elevated.Although she has mild pedal edema, I do not suspect congestive heart failure. Plan: Empiric antibiotic therapy for bacterial community-acquired pneumonia: Rocephin and azithromycin Check mycoplasma titers Check COVID status Old records from [facility] are requested so as to verify what her work-up was. I am hoping they will obtain a CT of the chest, echocardiogram, pathology, cultures. If those have not been done, they may need to be done with this admission. Qualifiers: Pneumonia type: due to unspecified organism Laterality: bilateral Lung location: unspecified part of lung Qualified Code(s): J18.9 - Pneumonia, unspecified organism (2) Recurrent left pleural effusion Conclusion/Plan: At this point she has bilateral pleural effusions. But history is that of left pleural effusion. Plan: Review work-up from [facility] before I repeat studies such as CTs or echocardiograms. We will try and figure out who her apparel patternmaker was and have a conversation with him tomorrow. (3) Normocytic anemia Conclusion/Plan: A new finding on her labs in reviewing her old records here. However [facility] m ay have more recent labs. Hemoglobin in the past was 12. No description of GI bleeding. May be due to lack of p.o. intake and malnutrition. Plan: Stool for acute fecal occult blood. I did recommend she get a colonoscopy but she says she is never had one before, has refused it in the past, and she is not going to do it now Anemia panel (4) Acute kidney injury Conclusion/Plan: By description, most likely due to decreased p.o. intake, dehydration. Plan: IV fluids. Avoid nephrotoxic agents Check BMP daily (5) Hypokalemia Conclusion/Plan: Supplement p.o. and recheck in the morning (6) Conjunctivitis Conclusion/Plan: Although I suspect viral pneumonia and upper respiratory, I am treating empirically with antibiotics. Will use ophthalmologic drops. Qualifiers: Conjunctivitis type: acute Acute conjunctivitis type: viral Laterality: bilateral Qualified Code(s): B30.9 - Viral conjunctivitis, unspecified - Lab Results Lab results reviewed: Yes Fish Bones: 10/12/19 00:10 10/12/19 00:10 - Diagnostic Imaging Results Diagnostic Imaging Results: positive: Prelim report reviewed Core Measures - Anticipated LOS I expect patient to be DC'd or transferred within 96 hours.: Yes - DVT/VTE - Prophylaxis VTE/DVT Device ordered at admit?: Yes
[2019-10-12] MEDS ORDERED: POTASSIUM CHLORIDE 20 MEQ TABLET PO STA (02:47)
[2019-10-12] MEDS: POLYMYXIN B/TRIMETH OPHTH DROPS EACHEYE SCH ×6 (04:39→22:45)
[2019-10-12] MEDS: SODIUM CHLORIDE 0.9% 1,000 ML IV SCH ×2 (04:40→17:04)
[2019-10-12] MEDS: SODIUM CHLORIDE FLUSH 0.9% 10 ML SYRINGE IVP PRN (04:40)
[2019-10-12 05:14] LABS: BASOPHILS % (AUTO) 0.8 %; EOSINOPHILS % (AUTO) 2.1 %; HGB - HEMOGLOBIN 9.6 g/dL (12.0-16.0); LYMPHOCYTES % (AUTO) 12.9 %; MEAN CORPUSCULAR HEMOGLOBIN 31.3 pg (27.0-31.0); MEAN CORPUSCULAR HGB CONC 32.7 g/dL (32.0-36.0); MEAN CORPUSCULAR VOLUME 95.8 fL (81.0-99.0); MONOCYTES % (AUTO) 9.3 %; NEUTROPHILS % (AUTO) 73.1 %; PLT - PLATELET COUNT 271 10^3/uL (130-450); RED BLOOD COUNT 3.07 10^6/uL (4.20-5.40); RED CELL DISTRIBUTION WIDTH 13.7 % (12.0-15.0); WHITE BLOOD COUNT 8.5 x10^3/uL (4.8-10.8)
[2019-10-12 05:21] LABS: ABNORMAL LYMPHS % (MANUAL) 0 %
[2019-10-12 05:33] LABS: CALCIUM 8.9 mg/dL (8.5-10.3); CREATININE 2.6 mg/dL (0.4-1.0)
[2019-10-12 05:41] LABS: % IRON SATURATION 9 % (20-50); IRON 15 ug/dL (28-170); TOTAL IRON BINDING CAPACITY 175 ug/dL (250-450); TRANSFERRIN 125 mg/dL (192-382)
[2019-10-12 05:47] LABS: FERRITIN 218.4 ng/mL (11.0-306.8)
[2019-10-12 05:48] LABS: BAND NEUTROPHILS % (MANUAL) 9 %; BASOPHILS # (MANUAL) 0.1 10^3/uL (0-0.1); BASOPHILS % (MANUAL) 1 %; DIFFERENTIAL COMMENT MANUAL DIFFERENTIAL; EOSINOPHILS # (MANUAL) 0.1 10^3/uL (0-0.7); LYMPHOCYTES # (MANUAL) 1.9 10^3/uL (1.5-3.5); LYMPHOCYTES % (MANUAL) 22 %; MONOCYTES # (MANUAL) 0.4 10^3/uL (0.0-1.0); PLATELET ESTIMATE, MANUAL NORMAL (130-450,000) (NORMAL); RBC MORPHOLOGY (MULTIPLE) NORMAL APPEARANCE (NORMAL)
[2019-10-12 05:50] LABS: ABSOLUTE RETICS # AUTO 0.021 10^6/uL (0.020-0.110); RED BLOOD COUNT 3.04 10^6/uL (4.20-5.40)
--- NOTE | 2019-10-12 07:51 | XRAY Report ---
PROCEDURE: Chest 2 View X-Ray INDICATIONS: fever TECHNIQUE: 2 view(s) of the chest. COMPARISON: , 11/15/2018 and 06/02/2018. FINDINGS: Surgical changes and devices: None. Lungs and pleura: Small left-sided pleural fluid collection. Patchy airspace opacities noted in the l ungs bilaterally, left greater than right, with lower lobe predominance concerning for multilobar pne umonia. Mediastinum: Mediastinal contours are normal. Heart size is normal. Bones and chest wall: Chronic left rib fractures are stable. No suspicious bony abnormalities. Soft tissues appear unremarkable. IMPRESSION: 1. Patchy bilateral lung opacities left greater than right concerning for multilobar pneumonia. 2. Small left-sided pleural effusion. Reviewed by: Lela Hernandez MD, PhD on 10/12/2019 7:50 AM PDT Approved by: Lela Hernandez MD, PhD on 10/12/2019 7:50 AM PDT Station ID: [id number]
[2019-10-12] MEDS: ENOXAPARIN 30 MG/0.3 ML SYRINGE SUBQ SCH (08:44)
[2019-10-12] MEDS: SACCHAROMYCES BOULARDII 250 MG CAPSULE PO SCH ×2 (08:45→17:04)
[2019-10-12] MEDS: cefTRIAXone 1 GM in SODIUM CHLORIDE 0.9% MINIBAG 100 ML IV SCH (08:45)
[2019-10-12] MEDS: oxyCODONE 5 MG TABLET PO PRN (08:45)
[2019-10-12] MEDS: PRENATAL VITAMIN TABLET PO SCH (08:45)
[2019-10-12] MEDS: AZITHROMYCIN INJ 500 MG in SODIUM CHLORIDE 0.9% 250 ML IV SCH (09:56)
[2019-10-12] MEDS: ACETAMINOPHEN 325 MG TABLET PO PRN ×2 (12:26→22:48)
[2019-10-12] MEDS: SODIUM CHLORIDE FLUSH 0.9% 10 ML SYRINGE IVP SCH ×2 (12:27→17:04)
--- NOTE | 2019-10-12 14:44 | PHARMACY PROGRESS NOTE ---
- Best Possible Medication History Admit Date and Time: 10/12/19 0108 Processed by: Pharmacy Medication History completed: Yes Patient Interview: Pt unable to participate (COVID R/O) Secondary Source(s): Physician records, Pharmacy records, Previous admit records As the person ultimately responsible for medication therapy, providers are able to order a medication from an existing home medication list in [facility] via the "Reconcile Routine" prior to Confirmation of that medication by lab support tech. Such practice is discouraged except when the physician, in their clinical judgment, deems that a medical need exists for a medication without regard to previous use.
[2019-10-12] MEDS: BENZOCAINE/MENTHOL LOZENGE MM PRN ×2 (19:37→22:48)
[2019-10-13] MEDS: SODIUM CHLORIDE FLUSH 0.9% 10 ML SYRINGE IVP SCH ×4 (00:55→23:59)
[2019-10-13] MEDS: BENZOCAINE/MENTHOL LOZENGE MM PRN ×4 (01:10→20:34)
[2019-10-13] MEDS: POLYMYXIN B/TRIMETH OPHTH DROPS EACHEYE SCH ×2 (03:24→06:29)
[2019-10-13 05:08] LABS: BASOPHILS # (AUTO) 0.1 10^3/uL (0.0-0.1); BASOPHILS % (AUTO) 0.9 %; EOSINOPHILS # (AUTO) 0.3 10^3/uL (0.0-0.7); EOSINOPHILS % (AUTO) 3.1 %; HGB - HEMOGLOBIN 9.3 g/dL (12.0-16.0); LYMPHOCYTES # (AUTO) 1.3 10^3/uL (1.5-3.5); LYMPHOCYTES % (AUTO) 13.6 %; MEAN CORPUSCULAR HEMOGLOBIN 31.2 pg (27.0-31.0); MEAN CORPUSCULAR HGB CONC 31.7 g/dL (32.0-36.0); MEAN CORPUSCULAR VOLUME 98.3 fL (81.0-99.0); MEAN PLATELET VOLUME 9.5 fL (7.9-10.8); MONOCYTES # (AUTO) 0.7 10^3/uL (0.0-1.0); MONOCYTES % (AUTO) 7.7 %; NEUTROPHILS # (AUTO) 6.5 10^3/uL (1.5-6.6); NEUTROPHILS % (AUTO) 69.9 %; PLT - PLATELET COUNT 244 10^3/uL (130-450); RED BLOOD COUNT 2.98 10^6/uL (4.20-5.40); RED CELL DISTRIBUTION WIDTH 13.8 % (12.0-15.0); WHITE BLOOD COUNT 9.2 x10^3/uL (4.8-10.8)
[2019-10-13 05:16] LABS: CALCIUM 8.5 mg/dL (8.5-10.3); CREATININE 2.1 mg/dL (0.4-1.0)
[2019-10-13 05:32] LABS: PLATELET ESTIMATE, MANUAL NORMAL (130-450,000) (NORMAL); PLATELET MORPHOLOGY NORMAL APPEARANCE (NORMAL); RBC MORPHOLOGY (MULTIPLE) NORMAL APPEARANCE (NORMAL)
--- NOTE | 2019-10-13 07:28 | PROVIDER PROGRESS NOTE ---
Subjective - Prog Note Date Prog Note Date: 10/13/19 - Subjective Subjective: She reports feeling better today. She is able to walk around her room without dyspnea. Reports no chest pain. Denies a cough. She feels improved overall. She is requesting a liquid/soft diet as she has difficulty with regular food. Current Medications - Current Medications Current Medications: Active Medications Acetaminophen (Tylenol) 650 mg PO Q4HR PRN PRN Reason: Pain 1 to 4 Last Admin: 10/12/19 22:48 Dose: 650 mg Documented by: Amlodipine Besylate (Norvasc) 5 mg PO DAILY [facility] Docusate Sodium (Colace 250mg Capsule) 250 - 500 mg PO DAILY [facility] Enoxaparin Sodium (Lovenox) 30 mg SUBQ DAILY [facility] Last Admin: 10/12/19 08:44 Dose: 30 mg Documented by: Azithromycin 500 mg/ Sodium (Chloride) 250 mls @ 250 mls/hr IV DAILY [facility] Stop: 10/14/19 09:59 Last Infusion: 10/12/19 11:26 Dose: Infused Documented by: Ceftriaxone Sodium 1 gm/ (Sodium Chloride) 100 mls @ 200 mls/hr IV DAILY [facility] Stop: 10/16/19 09:29 Last Infusion: 10/12/19 09:45 Dose: Infused Documented by: Ondansetron HCl (Zofran Odt) 4 mg TL Q6HR PRN PRN Reason: Nausea / Vomiting Ondansetron HCl (Zofran Inj) 4 mg IVP Q6HR PRN PRN Reason: Nausea / Vomiting Oxycodone HCl (Roxicodone) 5 mg PO Q4HR PRN PRN Reason: Pain 5 to 7 Last Admin: 10/12/19 08:45 Dose: 5 mg Documented by: Phenol/Menthol (Chloraseptic) 2 sprays MM Q2HR PRN PRN Reason: Throat Pain Polyethylene Glycol (Miralax) 17 gm PO DAILY [facility] Polymyxin/Trimethoprim Sulfate (Polytrim Ophth Drops) 1 drops EACHEYE Q4H [facility] Last Admin: 10/13/19 06:29 Dose: 1 drops Documented by: Multivit/Folic Acid/Iron (Trinatal Rx 1) 1 tab PO DAILYWM [facility] Last Admin: 10/12/19 08:45 Dose: 1 tab Documented by: Saccharomyces Boulardii (Florastor) 250 mg PO BIDWM [facility] Last Admin: 10/12/19 17:04 Dose: 250 mg Documented by: Sodium Chloride (Normal Saline Flush 0.9%) 10 ml IVP PRN PRN PRN Reason: NEEDED PER PROVIDER ORDERS Last Admin: 10/12/19 04:40 Dose: 10 ml Documented by: Sodium Chloride (Normal Saline Flush 0.9%) 10 ml IVP 0100,0900,1700 [facility] Last Admin: 10/13/19 00:55 Dose: Not Given Documented by: Throat Lozenges (Cepacol) 1 lozenge MM Q2HR PRN PRN Reason: Throat pain Last Admin: 10/13/19 01:10 Dose: 1 lozenge Documented by: Aspirin/Caffein/Dihydrocodeine [Turtoni-Oofz-Kxdbremmnfntq Cap] 1 each PO BID 06/24/16 Budesonide/Formoterol Fumarate [Symbicort 80-4.5 Mcg Inhaler] 2 puffs IH BID 10/12/19 amLODIPine [Norvasc] 5 mg PO DAILY 10/12/19 Objective - Vital Signs/Intake & Output Reviewed Vital Signs: Yes Vital Signs: Vital Signs x48h Temp Pulse Resp BP Pulse Ox 10/13/19 06:27 37.1 C 85 18 145/60 H 93 10/13/19 00:53 37.1 C 10/12/19 23:47 38.4 C H 95 22 140/57 H 92 Intake & Output: Intake & Output 10/10/19 10/11/19 10/12/19 10/13/19 23:59 23:59 23:59 23:59 Intake Total 2240.000 1200 Output Total 1100 450 Balance 1140.000 750 - Objective General Appearance: positive: No acute distress, Alert Eyes Bilateral: positive: Normal inspection, Conjunctivae nml ENT: positive: ENT inspection nml Neck: positive: Nml inspection Respiratory: positive: No respiratory distress, Rhonchi. negative: Wheezes, Rales Cardiovascular: positive: Regular rate & rhythm, No murmur. negative: Tachycardia, Systolic murmur Abdomen: positive: Non-tender, No distention. negative: Tenderness, Guarding, Rebound Skin: positive: No rash, Warm, Dry Extremities: positive: Full ROM, No pedal edema Neurologic/Psychiatric: positive: Oriented x3, Motor nml. negative: Disoriented to person, Disoriented to place, Disoriented to time - Lab Results Fish Bones: 10/13/19 04:50 10/13/19 04:50 Other Labs: Lab Results x24hrs 10/13/19 10/13/19 Range/Units 04:50 04:50 WBC 9.2 (4.8-10.8) x10^3/uL RBC 2.98 L (4.20-5.40) 10^6/uL Hgb 9.3 L (12.0-16.0) g/dL Hct 29.3 L (37.0-47.0) % MCV 98.3 (81.0-99.0) fL MCH 31.2 H (27.0-31.0) pg MCHC 31.7 L (32.0-36.0) g/dL RDW 13.8 (12.0-15.0) % Plt Count 244 (130-450) 10^3/uL MPV 9.5 (7.9-10.8) fL Neut # (Auto) 6.5 (1.5-6.6) 10^3/uL Lymph # (Auto) 1.3 L (1.5-3.5) 10^3/uL [place] # (Auto) 0.7 (0.0-1.0) 10^3/uL Eos # (Auto) 0.3 (0.0-0.7) 10^3/uL Baso # (Auto) 0.1 (0.0-0.1) 10^3/uL Absolute Nucleated RBC 0.00 x10^3/uL Nucleated RBC % 0.0 /100WBC Manual Slide Review Indicated Platelet Estimate NORMAL (130-450,000) (NORMAL) Platelet Morphology NORMAL APPEARANCE (NORMAL) RBC Morph Micro Appear NORMAL APPEARANCE (NORMAL) Sodium 139 (135-145) mmol/L Potassium 3.7 (3.5-5.0) mmol/L Chloride 110 (101-111) mmol/L Carbon Dioxide 19 L (21-32) mmol/L Anion Gap 10.0 (6-13) BUN 28 H (6-20) mg/dL Creatinine 2.1 H (0.4-1.0) mg/dL Estimated GFR (MDRD) 23 L (>89) Glucose 101 H (70-100) mg/dL Calcium 8.5 (8.5-10.3) mg/dL ABX Reporting Has patient been on IV antibiotics over the past 48 hours?: Yes Sepsis Event Note (H) - Evaluation Current Stage of Sepsis: Sepsis Possible source of Sepsis: positive: Pulmonary - Sepsis Criteria Sepsis Criteria: Recorded Temperature greater than 38.3C or Less than 36C, Recorded Heart Rate greater than 90 bpm, Recorded Respiratory Rate greater than 20, Renal: urine output less than 0.5ml/kg/hr for 2 hours or creatinine gr Assessment/Plan - Problem List (1) Severe sepsis Impression: She meets criteria for severe sepsis given her fever, tachycardia, tachypnea and evidence of endorgan damage given the acute kidney injury. This is believed to be secondary to the community-acquired pneumonia. Her white count has remained normal but she did have 15% bands on admission. This has since resolved. She continues to remain febrile. Fortunately, she has not been hypotensive and has actually been hypertensive. Her acute kidney injury has improved but still not at baseline. We will give her a 1 L bolus today and continue with gentle IV hydration. We will continue her on ceftriaxone azithromycin IV empirically for the community-acquired pneumonia. Blood cultures have been negative to date. COVID-19 is pending. Continue to trend white count and monitor her fever curve. (2) Community acquired pneumonia Impression: She has evidence of bilateral pneumonia on chest x-ray. This is believed to be a cause of her sepsis. COVID-19 is pending. She has been started empirically on ceftriaxone and azithromycin IV with today being day 2 which will be gia nued. We are awaiting records from [facility] but we will likely obtain a CT of the chest today for further evaluation of her bilateral infiltrates. Fortunately, she is not hypoxic and her tachypnea has improved. We will continue to monitor her very closely. (3) Acute kidney injury superimposed on chronic kidney disease Impression: She has chronic kidney disease with a baseline creatinine of approximately 1.4. Her creatinine was 2.7 on admission. This was felt to likely be prerenal injury although there could have been a component of ATN given the sepsis. She has improved with IV fluids and her creatinine is now 2.1. Urinalysis on admission showed a few coarse granular casts. We will continue with gentle IV hydration. We will continue to monitor her renal function and avoid nephrotoxins. (4) Pleural effusion on left Impression: Chest x-ray on admission suggestive of a left pleural effusion. Both the patient and family tell me she is a history of VATS for a right pleural effusion that was recurrent. From what the recall it was on the right side. Records have been requested from [facility] and I am awaiting these. We will likely obtain a CT of the chest today for further evaluation of the bilateral infiltrates and this will also help evaluate this left-sided pleural effusion. He follows with Dr. Chris Donald of Pulmonology at [facility]. (5) Anemia of chronic disease Impression: Her hemoglobin has remained stable during this hospitalization. There has been no evidence of bleeding. Her iron studies are suggestive of anemia of chronic d isease. She also has chronic kidney disease which is likely contributing to her anemia. We will continue to monitor her hemoglobin on a daily basis and monitor for signs of bleeding. (6) Conjunctivitis Impression: She had evidence of conjunctivitis on admission which has significantly improved. She was started on Polytrim ophthalmic drops initially. Suspect this was likely viral conjunctivitis at this time and we will discontinue the Polytrim ophthalmic drops. If her conjunctivitis becomes more prominent with discontinuation of the abdominal drops then we will resume them. We will continue to monitor for the time being. Qualifiers: Conjunctivitis type: acute Acute conjunctivitis type: viral Laterality: bilateral Qualified Code(s): B30.9 - Viral conjunctivitis, unspecified (7) Hypertension Impression: She has a history of hypertension for which she takes amlodipine. Her blood pressure has been elevated in the 150s. We have resumed her home amlodipine.
[2019-10-13] MEDS ORDERED: LACTATED RINGERS 1,000 ML IV ONE (09:12)
[2019-10-13] MEDS: AZITHROMYCIN INJ 500 MG in SODIUM CHLORIDE 0.9% 250 ML IV SCH (10:07)
[2019-10-13] MEDS: DOCUSATE SODIUM 250 MG CAPSULE PO SCH (10:08)
[2019-10-13] MEDS: polyethylene glycoL 3350 17 GM PACKET PO SCH (10:08)
[2019-10-13] MEDS: amLODIPine 5 MG TABLET PO SCH (10:10)
[2019-10-13] MEDS: SACCHAROMYCES BOULARDII 250 MG CAPSULE PO SCH ×2 (10:10→16:22)
[2019-10-13] MEDS: PRENATAL VITAMIN TABLET PO SCH (10:10)
[2019-10-13] MEDS: PHENOL THROAT SPRAY 177 ML MM PRN ×2 (10:12→21:57)
[2019-10-13] MEDS: ENOXAPARIN 30 MG/0.3 ML SYRINGE SUBQ SCH (10:15)
[2019-10-13] MEDS: SENNA 8.6 MG TABLET PO SCH (10:41)
[2019-10-13] MEDS: ACETAMINOPHEN 325 MG TABLET PO PRN (10:42)
[2019-10-13] MEDS: cefTRIAXone 1 GM in SODIUM CHLORIDE 0.9% MINIBAG 100 ML IV SCH (12:27)
[2019-10-13] MEDS: SODIUM CHLORIDE FLUSH 0.9% 10 ML SYRINGE IVP PRN (12:33)
--- NOTE | 2019-10-13 14:06 | CT Report ---
PROCEDURE: CHEST WO INDICATIONS: Atypical pneumonia. Fever. TECHNIQUE: Noncontrast 5 mm thick sections acquired from the pulmonary apices to the posterior costophrenic angl es. 7 mm thick coronal and sagittal MIP reformats were then acquired. For radiation dose reduction, the following was used: automated exposure control, adjustment of mA and/or kV according to patient size. COMPARISON: Correlation is made with prior chest radiographs 09/18/2019 and 10/11/2019 FINDINGS: Image quality: Excellent. Lungs and pleura: Patchy bilateral infiltrates are seen, which demonstrate an interstitial quality. T hese are seen primarily inferiorly and dependently, which are most prominent within the dependent lef t upper lobe and within both lower lobes. Small bilateral pleural effusions are seen. No pneumothorax . Central and peripheral airways are patent and normal in caliber. Mediastinum: Heart size is normal. No pericardial effusion. . Enlargement of central lymph nodes a re seen, with the largest lymph node in the right precarinal lymph node measuring 12 x 16 mm. Thoraci c aorta and central pulmonary arteries are normal in size. Atherosclerotic calcification is seen. Es ophagus is normal in caliber. There is a moderate hiatal hernia. Bones and chest wall: No suspicious bony lesions. Remote, partially healed left posterior rib fract ures are seen. Age-appropriate degenerative changes are seen. No vertebral body compression fractur es. No axillary or supraclavicular adenopathy by size criteria. The thyroid is normal in size. Abdomen: Dependent gallstones are seen. Atherosclerotic calcification is seen. The visualized portion s of the upper abdominal structures are otherwise within normal limits. IMPRESSION: Patchy dependent infiltrates are seen, which are most likely related to an infectious infiltrate. Giv en the patchy appearance, please consider COVID-19 in this patient. Mildly enlarged mediastinal lymph nodes are seen, which may be reactive. Small bilateral pleural effusions are seen. A follow-up noncontrast chest CT in 6-8 weeks is recommended to ensure resolution and to evaluate for a potential underlying pulmonary nodule or mass. Incidental note is made of: Moderate hiatal hernia Remote, partially healed left posterior rib fractures Atherosclerotic calcification Gallstones Reviewed by: Ramy Sifuentes MD on 10/13/2019 1:05 PM PATRICIA Approved by: Ramy Sifuentes MD on 10/13/2019 1:05 PM AKROCIO Station ID: [id number]
[2019-10-13] MEDS: guaiFENesin 600 MG TABLET PO SCH (21:45)
[2019-10-14 05:05] LABS: BASOPHILS # (AUTO) 0.1 10^3/uL (0.0-0.1); BASOPHILS % (AUTO) 0.4 %; EOSINOPHILS # (AUTO) 0.2 10^3/uL (0.0-0.7); EOSINOPHILS % (AUTO) 1.9 %; HGB - HEMOGLOBIN 9.3 g/dL (12.0-16.0); LYMPHOCYTES # (AUTO) 1.4 10^3/uL (1.5-3.5); MEAN CORPUSCULAR HEMOGLOBIN 30.9 pg (27.0-31.0); MEAN CORPUSCULAR HGB CONC 31.4 g/dL (32.0-36.0); MEAN CORPUSCULAR VOLUME 98.3 fL (81.0-99.0); MEAN PLATELET VOLUME 9.5 fL (7.9-10.8); MONOCYTES # (AUTO) 0.6 10^3/uL (0.0-1.0); MONOCYTES % (AUTO) 4.7 %; NEUTROPHILS # (AUTO) 9.7 10^3/uL (1.5-6.6); NEUTROPHILS % (AUTO) 77.7 %; PLT - PLATELET COUNT 253 10^3/uL (130-450); RED BLOOD COUNT 3.01 10^6/uL (4.20-5.40); RED CELL DISTRIBUTION WIDTH 13.9 % (12.0-15.0); WHITE BLOOD COUNT 12.5 x10^3/uL (4.8-10.8)
[2019-10-14 05:14] LABS: CALCIUM 8.5 mg/dL (8.5-10.3); CREATININE 1.8 mg/dL (0.4-1.0)
[2019-10-14 05:29] LABS: PLATELET ESTIMATE, MANUAL NORMAL (130-450,000) (NORMAL); PLATELET MORPHOLOGY NORMAL APPEARANCE (NORMAL); RBC MORPHOLOGY (MULTIPLE) NORMAL APPEARANCE (NORMAL)
--- NOTE | 2019-10-14 07:17 | PROVIDER PROGRESS NOTE ---
Subjective - Prog Note Date Prog Note Date: 10/14/19 - Subjective Subjective: He continues to report feeling well. Reports no dyspnea. Still has a nonproductive cough. She was complaining of pain at the site of an IV which has since been removed. She states her pain at that site has since resolved. She has been ambulating within her room. Current Medications - Current Medications Current Medications: Active Medications Acetaminophen (Tylenol) 650 mg PO Q4HR PRN PRN Reason: Pain 1 to 4 Last Admin: 10/13/19 10:42 Dose: 650 mg Documented by: Amlodipine Besylate (Norvasc) 5 mg PO DAILY [facility] Last Admin: 10/13/19 10:10 Dose: 5 mg Documented by: Docusate Sodium (Colace 250mg Capsule) 250 - 500 mg PO DAILY [facility] Last Admin: 10/13/19 10:08 Dose: 500 mg Documented by: Enoxaparin Sodium (Lovenox) 30 mg SUBQ DAILY [facility] Last Admin: 10/13/19 10:15 Dose: 30 mg Documented by: Guaifenesin (Mucinex) 600 mg PO BID [facility] Last Admin: 10/13/19 21:45 Dose: 600 mg Documented by: Azithromycin 500 mg/ Sodium (Chloride) 250 mls @ 250 mls/hr IV DAILY [facility] Stop: 10/14/19 09:59 Last Infusion: 10/13/19 12:26 Dose: Infused Documented by: Ceftriaxone Sodium 1 gm/ (Sodium Chloride) 100 mls @ 200 mls/hr IV DAILY [facility] Stop: 10/16/19 09:29 Last Infusion: 10/13/19 13:44 Dose: Infused Documented by: Lactated Ringer's (Lr) 1,000 mls @ 100 mls/hr IV .Q10H [facility] Stop: 10/14/19 17:59 Ondansetron HCl (Zofran Odt) 4 mg TL Q6HR PRN PRN Reason: Nausea / Vomiting Ondansetron HCl (Zofran Inj) 4 mg IVP Q6HR PRN PRN Reason: Nausea / Vomiting Oxycodone HCl (Roxicodone) 5 mg PO Q4HR PRN PRN Reason: Pain 5 to 7 Last Admin: 10/12/19 08:45 Dose: 5 mg Documented by: Pantoprazole Sodium (Protonix) 40 mg PO QDAC [facility] Phenol/Menthol (Chloraseptic) 2 sprays MM Q2HR PRN PRN Reason: Throat Pain Last Admin: 10/13/19 21:57 Dose: 2 sprays Documented by: Polyethylene Glycol (Miralax) 17 gm PO DAILY [facility] Last Admin: 10/13/19 10:08 Dose: 17 gm Documented by: Multivit/Folic Acid/Iron (Trinatal Rx 1) 1 tab PO DAILYWM [facility] Last Admin: 10/13/19 10:10 Dose: 1 tab Documented by: Saccharomyces Boulardii (Florastor) 250 mg PO BIDWM [facility] Last Admin: 10/13/19 16:22 Dose: 250 mg Documented by: Senna (Senokot) 8.6 - 17.2 mg PO DAILY [facility] Last Admin: 10/13/19 10:41 Dose: 17.2 mg Documented by: Sodium Chloride (Normal Saline Flush 0.9%) 10 ml IVP PRN PRN PRN Reason: NEEDED PER PROVIDER ORDERS Last Admin: 10/13/19 12:33 Dose: 10 ml Documented by: Sodium Chloride (Normal Saline Flush 0.9%) 10 ml IVP 0100,0900,1700 [facility] Last Admin: 10/13/19 23:59 Dose: 10 ml Documented by: Throat Lozenges (Cepacol) 1 lozenge MM Q2HR PRN PRN Reason: Throat pain Last Admin: 10/13/19 20:34 Dose: 1 lozenge Documented by: Aspirin/Caffein/Dihydrocodeine [Iuuyken-Onyj-Tuhxirfxhtwej Cap] 1 each PO BID 06/24/16 Budesonide/Formoterol Fumarate [Symbicort 80-4.5 Mcg Inhaler] 2 puffs IH BID 10/12/19 amLODIPine [Norvasc] 5 mg PO DAILY 10/12/19 Objective - Vital Signs/Intake & Output Reviewed Vital Signs: Yes Vital Signs: Vital Signs x48h Temp Pulse Resp BP Pulse Ox 10/13/19 23:50 103 H 145/74 H 10/13/19 23:45 37.2 C 108 H 20 93 Intake & Output: Intake & Output 10/11/19 10/12/19 10/13/19 10/14/19 23:59 23:59 23:59 23:59 Intake Total 2240.000 3510 Output Total 1100 1200 300 Balance 4203.001 1896 -300 - Objective General Appearance: positive: No acute distress, Alert Eyes Bilateral: positive: Normal inspection, Conjunctivae nml ENT: positive: ENT inspection nml Neck: positive: Nml inspection Respiratory: positive: No respiratory distress, Other (Diminished.). negative: Wheezes, Rales Cardiovascular: positive: Regular rate & rhythm. negative: Irregularly irregular, Tachycardia, Systolic murmur Abdomen: positive: Non-tender, Nml bowel sounds. negative: Tenderness, Guarding, Rebound Skin: positive: No rash, Warm, Dry Extremities: positive: No pedal edema Neurologic/Psychiatric: negative: Disoriented to person, Disoriented to place - Lab Results Fish Bones: 10/14/19 04:48 10/14/19 04:48 Other Labs: Lab Results x24hrs 10/14/19 10/14/19 10/12/19 Range/Units 04:48 04:48 13:07 WBC 12.5 H (4.8-10.8) x10^3/uL RBC 3.01 L (4.20-5.40) 10^6/uL Hgb 9.3 L (12.0-16.0) g/dL Hct 29.6 L (37.0-47.0) % MCV 98.3 (81.0-99.0) fL MCH 30.9 (27.0-31.0) pg MCHC 31.4 L (32.0-36.0) g/dL RDW 13.9 (12.0-15.0) % Plt Count 253 (130-450) 10^3/uL MPV 9.5 (7.9-10.8) fL Neut # (Auto) 9.7 H (1.5-6.6) 10^3/uL Lymph # (Auto) 1.4 L (1.5-3.5) 10^3/uL [place] # (Auto) 0.6 (0.0-1.0) 10^3/uL Eos # (Auto) 0.2 (0.0-0.7) 10^3/uL Baso # (Auto) 0.1 (0.0-0.1) 10^3/uL Absolute Nucleated RBC 0.00 x10^3/uL Nucleated RBC % 0.0 /100WBC Manual Slide Review Indicated Platelet Estimate NORMAL (130-450,000) (NORMAL) Platelet Morphology NORMAL APPEARANCE (NORMAL) RBC Morph Micro Appear NORMAL APPEARANCE (NORMAL) Sodium 137 (135-145) mmol/L Potassium 3.2 L (3.5-5.0) mmol/L Chloride 108 (101-111) mmol/L Carbon Dioxide 18 L (21-32) mmol/L Anion Gap 11.0 (6-13) BUN 22 H (6-20) mg/dL Creatinine 1.8 H (0.4-1.0) mg/dL Estimated GFR (MDRD) 27 L (>89) Glucose 108 H (70-100) mg/dL Calcium 8.5 (8.5-10.3) mg/dL Stl Occult Blood (IFOB) POSITIVE A (NEGATIVE) Coronavirus (PCR) 10/12/19 Range/Units 04:10 WBC (4.8-10.8) x10^3/uL RBC (4.20-5.40) 10^6/uL Hgb (12.0-16.0) g/dL Hct (37.0-47.0) % MCV (81.0-99.0) fL MCH (27.0-31.0) pg MCHC (32.0-36.0) g/dL RDW (12.0-15.0) % Plt Count (130-450) 10^3/uL MPV (7.9-10.8) fL Neut # (Auto) (1.5-6.6) 10^3/uL Lymph # (Auto) (1.5-3.5) 10^3/uL [place] # (Auto) (0.0-1.0) 10^3/uL Eos # (Auto) (0.0-0.7) 10^3/uL Baso # (Auto) (0.0-0.1) 10^3/uL Absolute Nucleated RBC x10^3/uL Nucleated RBC % /100WBC Manual Slide Review Platelet Estimate (NORMAL) Platelet Morphology (NORMAL) RBC Morph Micro Appear (NORMAL) Sodium (135-145) mmol/L Potassium (3.5-5.0) mmol/L Chloride (101-111) mmol/L Carbon Dioxide (21-32) mmol/L Anion Gap (6-13) BUN (6-20) mg/dL Creatinine (0.4-1.0) mg/dL Estimated GFR (MDRD) (>89) Glucose (70-100) mg/dL Calcium (8.5-10.3) mg/dL Stl Occult Blood (IFOB) (NEGATIVE) Coronavirus (PCR) NEGATIVE ABX Reporting Has patient been on IV antibiotics over the past 48 hours?: Yes Sepsis Event Note (H) - Evaluation Current Stage of Sepsis: Sepsis Possible source of Sepsis: positive: Pulmonary - Sepsis Criteria Sepsis Criteria: Recorded Temperature greater than 38.3C or Less than 36C, Recorded Heart Rate greater than 90 bpm, Recorded Respiratory Rate greater than 20, Renal: urine output less than 0.5ml/kg/hr for 2 hours or creatinine gr Assessment/Plan - Problem List (1) Severe sepsis Impression: This is secondary to community-acquired pneumonia. She has not been afebrile for more than 24 hours but she still is tachycardic and her white count has increased today. This was initially normal but she did have bands which have since resolved. Blood cultures have been negative to date. COVID-19 is also negative but repeat testing is pending. At this time, we will keep her on ceftriaxone and azithromycin IV with today being day 3. We will recheck a CBC in the morning to ensure her white count does not continue to climb. Follow-up blood cultures. We will give her another liter of lactated Ringer's over 10 hours today given her mild tachycardia. (2) Community acquired pneumonia Impression: This is the cause of her sepsis. She has bilateral infiltrates on chest x-ray. CT of the chest without contrast was obtained yesterday which showed patchy dependent infiltrates bilaterally. COVID-19 testing has been negative but this is being repeated to ensure this was not a false negative. She has not been h ypoxic and has been able to ambulate around her room without dyspnea. We will continue her on ceftriaxone and azithromycin IV with today being day 3 given her white count has increased slightly today. Follow-up repeat COVID-19 testing. (3) Acute kidney injury superimposed on chronic kidney disease Impression: This continues to improve. Her creatinine was 2.7 on admission and is currently 1.8. Her baseline is approximately 1.4. Suspect this likely prerenal as well as possible component of ATN given she had granular casts on her urinalysis. We will give her another bag of lactated Ringer's over 10 hours. Continue to avoid nephrotoxins. We will continue to monitor renal function and urine output. (4) Pleural effusion on left Impression: CT of the chest revealed small bilateral pleural effusions. These are too small for a thoracentesis. These can be followed up on an outpatient basis. (5) Anemia of chronic disease Impression: Her iron studies are suggestive of anemia of chronic disease. Her hemoglobin has remained stable. Her stool is heme positive but there is no evidence of significant bleeding. We will continue to monitor while she is hospitalized. (6) Conjunctivitis Impression: This is improved. We will continue to monitor. Qualifiers: Conjunctivitis type: acute Acute conjunctivitis type: viral Laterality: bilateral Qualified Code(s): B30.9 - Viral conjunctivitis, unspecified (7) Heme positive stool Impression: Her stool is heme positive but her hemoglobin has remained stable during this hospitalization. Her iron studies are suggestive of anemia of chronic disease. At this time, we will monitor for signs of significant bleeding. We will start her empirically on oral Protonix. Will discuss with general surgery if they would consider endoscopy during this hospitalization or if they would want her to recover from pneumonia and perform this on an outpatient basis. (8) Hypertension Impression: Blood pressure stable on amlodipine. This will be continued. (9) Hypokalemia Impression: We will replace this orally.
[2019-10-14] MEDS ORDERED: POTASSIUM CHLORIDE 20 MEQ TABLET PO ONE (07:34)
[2019-10-14] MEDS ORDERED: LACTATED RINGERS 1,000 ML IV SCH (08:00)
[2019-10-14] MEDS: ENOXAPARIN 30 MG/0.3 ML SYRINGE SUBQ SCH (09:27)
[2019-10-14] MEDS: PRENATAL VITAMIN TABLET PO SCH (09:28)
[2019-10-14] MEDS: PANTOPRAZOLE 40 MG TABLET PO SCH (09:28)
[2019-10-14] MEDS: amLODIPine 5 MG TABLET PO SCH (09:28)
[2019-10-14] MEDS: guaiFENesin 600 MG TABLET PO SCH ×2 (09:28→18:59)
[2019-10-14] MEDS: BENZOCAINE/MENTHOL LOZENGE MM PRN ×2 (09:28→23:40)
[2019-10-14] MEDS: DOCUSATE SODIUM 250 MG CAPSULE PO SCH (09:29)
[2019-10-14] MEDS: SACCHAROMYCES BOULARDII 250 MG CAPSULE PO SCH ×2 (09:29→17:09)
[2019-10-14] MEDS: SENNA 8.6 MG TABLET PO SCH (09:29)
[2019-10-14] MEDS: polyethylene glycoL 3350 17 GM PACKET PO SCH (09:29)
[2019-10-14] MEDS: AZITHROMYCIN INJ 500 MG in SODIUM CHLORIDE 0.9% 250 ML IV SCH (09:30)
[2019-10-14] MEDS: SODIUM CHLORIDE FLUSH 0.9% 10 ML SYRINGE IVP SCH ×3 (09:35→23:40)
[2019-10-14] MEDS: oxyCODONE 5 MG TABLET PO PRN (10:53)
[2019-10-14] MEDS: ACETAMINOPHEN 325 MG TABLET PO PRN ×2 (10:53→21:31)
[2019-10-14] MEDS: cefTRIAXone 1 GM in SODIUM CHLORIDE 0.9% MINIBAG 100 ML IV SCH (12:20)
[2019-10-14] MEDS: SODIUM CHLORIDE FLUSH 0.9% 10 ML SYRINGE IVP PRN (13:00)
[2019-10-15] MEDS: PHENOL THROAT SPRAY 177 ML MM PRN ×2 (03:44→08:20)
[2019-10-15 05:07] LABS: BASOPHILS % (AUTO) 0.5 %; EOSINOPHILS % (AUTO) 3.7 %; HGB - HEMOGLOBIN 9.6 g/dL (12.0-16.0); LYMPHOCYTES % (AUTO) 11.6 %; MEAN CORPUSCULAR HEMOGLOBIN 32.3 pg (27.0-31.0); MEAN CORPUSCULAR HGB CONC 33.6 g/dL (32.0-36.0); MEAN CORPUSCULAR VOLUME 96.3 fL (81.0-99.0); MEAN PLATELET VOLUME 9.5 fL (7.9-10.8); MONOCYTES % (AUTO) 5.8 %; NEUTROPHILS % (AUTO) 74.3 %; PLT - PLATELET COUNT 255 10^3/uL (130-450); RED BLOOD COUNT 2.97 10^6/uL (4.20-5.40); RED CELL DISTRIBUTION WIDTH 13.9 % (12.0-15.0); WHITE BLOOD COUNT 12.5 x10^3/uL (4.8-10.8)
[2019-10-15 05:17] LABS: CALCIUM 8.4 mg/dL (8.5-10.3); CREATININE 1.8 mg/dL (0.4-1.0); MAGNESIUM 1.5 mg/dL (1.7-2.8); PHOSPHORUS 3.1 mg/dL (2.5-4.6)
[2019-10-15 05:18] LABS: ABNORMAL LYMPHS % (MANUAL) 0 %; BAND NEUTROPHILS % (MANUAL) 0 %
[2019-10-15 05:38] LABS: EOSINOPHILS # (MANUAL) 0.3 10^3/uL (0-0.7); LYMPHOCYTES % (MANUAL) 8 %; MONOCYTES # (MANUAL) 0.4 10^3/uL (0.0-1.0); MYELOCYTES % (MANUAL) 2 %; PLATELET ESTIMATE, MANUAL NORMAL (130-450,000) (NORMAL); PLATELET MORPHOLOGY NORMAL APPEARANCE (NORMAL); RBC MORPHOLOGY (MULTIPLE) NORMAL APPEARANCE (NORMAL)
[2019-10-15 05:39] LABS: DIFFERENTIAL COMMENT MANUAL DIFFERENTIAL
[2019-10-15] MEDS: PANTOPRAZOLE 40 MG TABLET PO SCH (06:04)
[2019-10-15] MEDS ORDERED: MAGNESIUM OXIDE 400 MG TABLET PO SCH (08:00)
[2019-10-15] MEDS: cefTRIAXone 1 GM in SODIUM CHLORIDE 0.9% MINIBAG 100 ML IV SCH (08:18)
[2019-10-15] MEDS: PRENATAL VITAMIN TABLET PO SCH (08:18)
--- NOTE | 2019-10-15 08:18 | XRAY Report ---
PROCEDURE: Chest 1 View X-Ray INDICATIONS: Follow up infiltrates. TECHNIQUE: One view of the chest was acquired. COMPARISON: Prior similar chest plain film 10/12/2019. FINDINGS: Surgical changes and devices: None. Lungs and pleura: No pleural effusions or pneumothorax. Lungs are abnormal, with a worsening alveol ar infiltration pattern greater on the left than the right as has been previously the case.. Mediastinum: Mediastinal contours appear normal. Heart size is normal. Bones and chest wall: No suspicious bony lesions. Overlying soft tissues appear unremarkable. Smal l presumed axillary calcified lymph node or other stable appearing soft tissue calcification previous ly present. IMPRESSION: Worsening alveolar infiltration bilaterally, greater on the left than the right, representing a mild interval worsening from the comparison study 3 days ago. Blunting of the left costophrenic sulcus ligia ears more prominent, mild in overall severity, and likely a manifestation of slight subpulmonic pleur al effusion. Note is made of old left-sided rib fractures previously present. Reviewed by: Alexandro Acharya MD on 10/15/2019 8:16 AM PDT Approved by: Alexandro Acharya MD on 10/15/2019 8:16 AM PDT Station ID: [id number]
[2019-10-15] MEDS: SACCHAROMYCES BOULARDII 250 MG CAPSULE PO SCH ×2 (08:19→17:38)
[2019-10-15] MEDS: guaiFENesin 600 MG TABLET PO SCH ×2 (08:20→21:35)
[2019-10-15] MEDS: BENZOCAINE/MENTHOL LOZENGE MM PRN ×2 (08:20→18:23)
[2019-10-15] MEDS: ENOXAPARIN 30 MG/0.3 ML SYRINGE SUBQ SCH (08:21)
[2019-10-15] MEDS: amLODIPine 5 MG TABLET PO SCH (08:21)
[2019-10-15] MEDS: SODIUM CHLORIDE FLUSH 0.9% 10 ML SYRINGE IVP SCH ×2 (08:21→17:38)
[2019-10-15] MEDS: polyethylene glycoL 3350 17 GM PACKET PO SCH (08:23)
[2019-10-15] MEDS: DOCUSATE SODIUM 250 MG CAPSULE PO SCH (08:23)
[2019-10-15] MEDS: SENNA 8.6 MG TABLET PO SCH (08:23)
[2019-10-15] MEDS: ACETAMINOPHEN 325 MG TABLET PO PRN (13:12)
--- NOTE | 2019-10-15 13:13 | PROVIDER PROGRESS NOTE ---
Subjective - Prog Note Date Prog Note Date: 10/15/19 - Subjective Subjective: She feels like her chest tightness has improved. She is looking forward to going home. Reports her breathing is fine with ambulation. She reports feeling fatigued overall. She states appetite also has not been very good. Current Medications - Current Medications Current Medications: Active Medications Acetaminophen (Tylenol) 650 mg PO Q4HR PRN PRN Reason: Pain 1 to 4 Last Admin: 10/14/19 21:31 Dose: 650 mg Documented by: Amlodipine Besylate (Norvasc) 10 mg PO DAILY [facility] Docusate Sodium (Colace 250mg Capsule) 250 - 500 mg PO DAILY [facility] Last Admin: 10/15/19 08:23 Dose: Not Given Documented by: Enoxaparin Sodium (Lovenox) 30 mg SUBQ DAILY [facility] Last Admin: 10/15/19 08:21 Dose: 30 mg Documented by: Guaifenesin (Mucinex) 600 mg PO BID [facility] Last Admin: 10/15/19 08:20 Dose: 600 mg Documented by: Ceftriaxone Sodium 1 gm/ (Sodium Chloride) 100 mls @ 200 mls/hr IV DAILY [facility] Stop: 10/16/19 09:29 Last Infusion: 10/15/19 10:01 Dose: Infused Documented by: Ondansetron HCl (Zofran Odt) 4 mg TL Q6HR PRN PRN Reason: Nausea / Vomiting Ondansetron HCl (Zofran Inj) 4 mg IVP Q6HR PRN PRN Reason: Nausea / Vomiting Oxycodone HCl (Roxicodone) 5 mg PO Q4HR PRN PRN Reason: Pain 5 to 7 Last Admin: 10/14/19 10:53 Dose: 5 mg Documented by: Pantoprazole Sodium (Protonix) 40 mg PO QDAC [facility] Last Admin: 10/15/19 06:04 Dose: 40 mg Documented by: Phenol/Menthol (Chloraseptic) 2 sprays MM Q2HR PRN PRN Reason: Throat Pain Last Admin: 10/15/19 08:20 Dose: 2 sprays Documented by: Polyethylene Glycol (Miralax) 17 gm PO DAILY [facility] Last Admin: 10/15/19 08:23 Dose: Not Given Documented by: Multivit/Folic Acid/Iron (Trinatal Rx 1) 1 tab PO DAILYWM [facility] Last Admin: 10/15/19 08:18 Dose: 1 tab Documented by: Shaniqua Simpsoni (Florastor) 250 mg PO BIDWM [facility] Last Admin: 10/15/19 08:19 Dose: 250 mg Documented by: Kirby (Senokot) 8.6 - 17.2 mg PO DAILY [facility] Last Admin: 10/15/19 08:23 Dose: Not Given Documented by: Sodium Chloride (Normal Saline Flush 0.9%) 10 ml IVP PRN PRN PRN Reason: NEEDED PER PROVIDER ORDERS Last Admin: 10/14/19 13:00 Dose: 20 ml Documented by: Sodium Chloride (Normal Saline Flush 0.9%) 10 ml IVP 0100,0900,1700 [facility] Last Admin: 10/15/19 08:21 Dose: 10 ml Documented by: Throat Lozenges (Cepacol) 1 lozenge MM Q2HR PRN PRN Reason: Throat pain Last Admin: 10/15/19 08:20 Dose: 1 lozenge Documented by: Aspirin/Caffein/Dihydrocodeine [Tibmffd-Lfyh-Mtcjxpfbjmmta Cap] 1 each PO BID 06/24/16 Budesonide/Formoterol Fumarate [Symbicort 80-4.5 Mcg Inhaler] 2 puffs IH BID 10/12/19 amLODIPine [Norvasc] 5 mg PO DAILY 10/12/19 Objective - Vital Signs/Intake & Output Reviewed Vital Signs: Yes Vital Signs: Vital Signs x48h Temp Pulse Resp BP BP Pulse Ox 10/15/19 08:46 37.5 C 93 16 143/61 H 94 10/15/19 06:03 101 H 146/65 H Intake & Output: Intake & Output 10/12/19 10/13/19 10/14/19 10/15/19 23:59 23:59 23:59 23:59 Intake Total 2240.000 3510 1510 300 Output Total 1100 1200 1300 1410 Balance 3529.600 9720 210 -1110 - Objective General Appearance: positive: No acute distress, Alert Eyes Bilateral: positive: Normal inspection, Conjunctivae nml ENT: positive: ENT inspection nml Neck: positive: Nml inspection Respiratory: positive: No respiratory distress, Rhonchi, Other (She is little tachypneic but is not in distress. Breath sounds are diminished in bases). negative: Wheezes, Rales Cardiovascular: positive: Regular rate & rhythm, No murmur. negative: Tachycardia, Systolic murmur Abdomen: positive: Non-tender, No distention. negative: Tenderness, Guarding, Rebound Skin: positive: Warm, Dry Extremities: positive: Full ROM, No pedal edema Neurologic/Psychiatric: positive: Motor nml. negative: Disoriented to person, Disoriented to place - Lab Results Fish Bones: 10/15/19 04:43 10/15/19 04:43 Other Labs: Lab Results x24hrs 10/15/19 10/15/19 10/15/19 Range/Units 04:43 04:43 04:43 WBC 12.5 H (4.8-10.8) x10^3/uL RBC 2.97 L (4.20-5.40) 10^6/uL Hgb 9.6 L (12.0-16.0) g/dL Hct 28.6 L (37.0-47.0) % MCV 96.3 (81.0-99.0) fL MCH 32.3 H (27.0-31.0) pg MCHC 33.6 (32.0-36.0) g/dL RDW 13.9 (12.0-15.0) % Plt Count 255 (130-450) 10^3/uL MPV 9.5 (7.9-10.8) fL Neut # (Auto) Not Reportable Lymph # (Auto) Not Reportable [place] # (Auto) Not Reportable Eos # (Auto) Not Reportable Baso # (Auto) Not Reportable Absolute Nucleated RBC Not Reportable Total Counted 100 Band Neuts % (Manual) 0 (0 - 10) % Abnorm Lymph % (Manual) 0 % Myelocytes % 2 H ( - 0) % Nucleated RBC % Not Reportable Neutrophils # (Manual) 10.6 H (1.5-6.6) 10^3/uL Lymphocytes # (Manual) 1.0 L (1.5-3.5) 10^3/uL Monocytes # (Manual) 0.4 (0.0-1.0) 10^3/uL Eosinophils # (Manual) 0.3 (0-0.7) 10^3/uL Basophils # (Manual) 0.0 (0-0.1) 10^3/uL Differential Comment MANUAL DIFFERENTIAL WBC Morphology NORMAL APPEARANCE (NORMAL) Platelet Estimate NORMAL (130-450,000) (NORMAL) Platelet Morphology NORMAL APPEARANCE (NORMAL) RBC Morph Micro Appear NORMAL APPEARANCE (NORMAL) Sodium 137 (135-145) mmol/L Potassium 3.6 (3.5-5.0) mmol/L Chloride 106 (101-111) mmol/L Carbon Dioxide 19 L (21-32) mmol/L Anion Gap 12.0 (6-13) BUN 18 (6-20) mg/dL Creatinine 1.8 H (0.4-1.0) mg/dL Estimated GFR (MDRD) 27 L (>89) Glucose 101 H (70-100) mg/dL Calcium 8.4 L (8.5-10.3) mg/dL Phosphorus 3.1 (2.5-4.6) mg/dL Magnesium 1.5 L (1.7-2.8) mg/dL B-Natriuretic Peptide 479 H (5-100) pg/mL ABX Reporting Has patient been on IV antibiotics over the past 48 hours?: Yes Sepsis Event Note (H) - Evaluation Current Stage of Sepsis: Sepsis Possible source of Sepsis: positive: Pulmonary - Sepsis Criteria Sepsis Criteria: Recorded Temperature greater than 38.3C or Less than 36C, Recorded Heart Rate greater than 90 bpm, Recorded Respiratory Rate greater than 20, Renal: urine output less than 0.5ml/kg/hr for 2 hours or creatinine gr Assessment/Plan - Problem List (1) Severe sepsis Impression: Secondary to her pneumonia and appears to be improving. She has been afebrile for 24 hours but she has been receiving Tylenol which could be masking fevers. Her white count still slightly elevated with a left shift. Her blood pressure has been stable and her renal function is improving. Blood cultures have also been negative to date. We will continue her on antibiotics for the community-acquired pneumonia. Continue to trend her white count. (2) Community acquired pneumonia Impression: Clinically she appears to be improving. A repeat chest x-ray was obtained today to follow-up her infiltrates which showed worsening bilateral opacities. Her white count is also elevated today. She has been afebrile but she is receiving Tylenol for neck pain. She is not hypoxic but still little tachypneic. Although she is improving, I am concerned about her going home today given her white count is still elevated and x-ray showed worsening infiltrates. We will keep her on ceftriaxone IV as she has already completed 3 days of azithromycin IV. We will broaden her antibiotics if she spikes a fever or if her white count continues to rise. She has been tested twice for COVID-19 and both of these are negative. We will take her off of precautions. (3) Acute kidney injury superimposed on chronic kidney disease Impression: This was likely prerenal injury as well as a component of ATN given the granular casts on urinalysis. Her renal function has improved on a daily basis although today it is stable at 1.8 compared to yesterday. Her baseline appears to be approximately 1.4. We will hold off on further IV hydration at this time. Continue to avoid nephrotoxins. Continue to monitor her BMP while hospitalized. (4) Anemia of chronic disease Impression: Her hemoglobin is stable and actually slightly increased today. Her iron studies are suggestive of anemia of chronic disease. Her stool is heme positive but there is no evidence of significant bleeding. Given the sepsis and pneumonia, will discuss with general surgery prior to discharge regarding the need for endoscopy but this can likely be done on outpatient basis. (5) Heme positive stool Impression: Her stool is heme positive. Her iron studies are suggestive of anemia of chronic disease. Hemoglobin is actually slightly increased today. There is been no evidence of significant bleeding. Will discuss with general surgery as mentioned above for possible endoscopy but this will likely be done on outpatient basis given her acute illness. (6) Hypertension Impression: Blood pressure has been elevated with systolic as high as the 170s. We will increase her amlodipine to 10 mg daily. (7) Pleural effusion on left Impression: CT of the chest revealed small bilateral effusions. These are too small for thoracentesis. We will continue to monitor. (8) Conjunctivitis Impression: This has resolved. This was likely viral in nature. Qualifiers: Conjunctivitis type: acute Acute conjunctivitis type: viral Laterality: bilateral Qualified Code(s): B30.9 - Viral conjunctivitis, unspecified (9) Hypokalemia Impression: This has resolved.
[2019-10-15] MEDS: oxyCODONE 5 MG TABLET PO PRN (21:35)
[2019-10-16] MEDS: SODIUM CHLORIDE FLUSH 0.9% 10 ML SYRINGE IVP SCH ×3 (00:33→17:16)
[2019-10-16 05:05] LABS: BASOPHILS # (AUTO) 0.1 10^3/uL (0.0-0.1); BASOPHILS % (AUTO) 0.6 %; EOSINOPHILS # (AUTO) 0.4 10^3/uL (0.0-0.7); HGB - HEMOGLOBIN 8.9 g/dL (12.0-16.0); LYMPHOCYTES # (AUTO) 1.1 10^3/uL (1.5-3.5); LYMPHOCYTES % (AUTO) 12.1 %; MEAN CORPUSCULAR HEMOGLOBIN 31.8 pg (27.0-31.0); MEAN CORPUSCULAR HGB CONC 32.7 g/dL (32.0-36.0); MEAN CORPUSCULAR VOLUME 97.1 fL (81.0-99.0); MEAN PLATELET VOLUME 9.5 fL (7.9-10.8); MONOCYTES # (AUTO) 0.6 10^3/uL (0.0-1.0); MONOCYTES % (AUTO) 6.1 %; NEUTROPHILS # (AUTO) 6.9 10^3/uL (1.5-6.6); NEUTROPHILS % (AUTO) 73.7 %; PLT - PLATELET COUNT 248 10^3/uL (130-450); RED CELL DISTRIBUTION WIDTH 13.7 % (12.0-15.0); WHITE BLOOD COUNT 9.4 x10^3/uL (4.8-10.8)
[2019-10-16 05:17] LABS: CALCIUM 8.2 mg/dL (8.5-10.3); CREATININE 1.7 mg/dL (0.4-1.0); MAGNESIUM 1.7 mg/dL (1.7-2.8); PHOSPHORUS 3.5 mg/dL (2.5-4.6)
[2019-10-16] MEDS: SIMETHICONE CHEW 80 MG TABLET PO SCH ×4 (06:01→17:15)
[2019-10-16] MEDS: PANTOPRAZOLE 40 MG TABLET PO SCH (06:01)
[2019-10-16] MEDS ORDERED: ALBUTEROL NEB 2.5 MG/3 ML INH PRN (07:29)
[2019-10-16] MEDS ORDERED: FERROUS SULFATE 325 MG TABLET PO SCH (08:00)
[2019-10-16] MEDS: PRENATAL VITAMIN TABLET PO SCH (08:32)
[2019-10-16] MEDS: SACCHAROMYCES BOULARDII 250 MG CAPSULE PO SCH ×2 (08:32→17:15)
[2019-10-16] MEDS: DOCUSATE SODIUM 250 MG CAPSULE PO SCH (08:32)
[2019-10-16] MEDS: SENNA 8.6 MG TABLET PO SCH (08:33)
[2019-10-16] MEDS: ENOXAPARIN 30 MG/0.3 ML SYRINGE SUBQ SCH (08:33)
[2019-10-16] MEDS: guaiFENesin 600 MG TABLET PO SCH (08:33)
[2019-10-16] MEDS: polyethylene glycoL 3350 17 GM PACKET PO SCH (08:33)
[2019-10-16] MEDS: cefTRIAXone 1 GM in SODIUM CHLORIDE 0.9% MINIBAG 100 ML IV SCH (08:37)
[2019-10-16] MEDS ORDERED: FORMOTEROL FUMARATE IH SCH (09:00)
[2019-10-16] MEDS ORDERED: [UNRECOGNIZED DRUG - OTHER] IH SCH (09:00)
[2019-10-16] MEDS ORDERED: BUDESONIDE IH SCH (09:00)
[2019-10-16] MEDS ORDERED: amLODIPine 5 MG TABLET PO SCH (09:00)
[2019-10-16] MEDS ORDERED: POTASSIUM CHLORIDE 20 MEQ TABLET PO ONE (09:11)
[2019-10-16 12:24] LABS: HGB - HEMOGLOBIN 9.4 g/dL (12.0-16.0)
[2019-10-16] MEDS ORDERED: MINERAL OIL ENEMA 133 ML BOTTLE RC SCH (13:35)
[2019-10-16] MEDS ORDERED: GLYCERIN ADULT SUPP PR ONE (14:17)
--- NOTE | 2019-10-16 15:17 | Discharge Plan ---
Discharge Plan Problem Reviewed?: Yes Disposition: Home, Self Care Condition: Stable Prescriptions: Ferrous Sulfate [Feosol] 325 mg PO DAILYWM #30 tablet Saccharomyces Boulardii [Florastor] 250 mg PO BIDWM #10 capsule cephALEXin [Keflex] 250 mg PO Q6H #20 capsule Vitamin [Trinatal Rx 1] 1 tab PO DAILYWM #30 tablet Diet: Soft Activity Restrictions: Activity as Tolerated Shower Restrictions: No (fall precaution) Instruction Topics: Pneumonia Dc, Cephalexin tablets or capsules, Anemia Ch, Iron tablets capsules extended-release tablets, Omeprazole tablets OTC Health Concerns: pneumonia, anemia, dehydration/QUIQUE Plan of Treatment: you were found to have pneumonia, you are prescribed Keflex antibiotics continue to finish the treatment course. you were found to have iron deficiency anemia, iron pill is prescribed for you. Your HGB is increased, you have no more blood stool. your home aspirin/caffeine/ dihydrocodeine is hold now. you are prescribed PPI omeprazole now. advise you followup with your PCP and guard range to have colonoscopy as out-pt. you presented dehydration and increased creatinine at the admission, now it is improved. advise you keep hydration and followup with your PCP to have blood work and continue monitor your kidney function as well. Care Goals: stabilization and improvement of your medical conditions Assessment: discussed the care plan with you, you understood and agreed. Additional Instructions or Follow Up instructions: you may followup with your PCP in one week, have blood work and monitor your renal function, have guard range as out-pt for colonoscopy. Should your symptoms return or worsen, you may present ER or call 911 for help. No Smoking: If you smoke, Please STOP! Call for help. Follow-up with: Dwayne Galvan MD [Primary Care Provider] -
--- NOTE | 2019-10-16 15:41 | DISCHARGE SUMMARY ---
Discharge Summary Admit Date: 10/12/19 Discharge Date: 10/16/19 Discharging Provider: Carlos Enrique Ansari Primary Care Provider: Dr. Dwayne Galvan Condition at Discharge: Stable Discharge Disposition: 01 Home, Self Care Discharge Facility Name: home - DIAGNOSES Discharge Diagnoses with Status of Each Condition: (1) Severe sepsis resolved. pt is hemdonamically stable. pt had 93% sats on room air, no fever, WBC is normal. pt is prescribed antibiotic to finish the treatment course. (2) Community acquired pneumonia improved and stable. pt is hemdonamically stable. pt had 93% sats on room air, no fever, WBC is normal. pt is prescribed antibiotic Keflex and doxycycline to finish the treatment course. pt really want to be d/c home today. Covid-19 test was negative. (3) Acute kidney injury superimposed on chronic kidney disease improved and stable. advise pt keep hydration and followup with her PCP to continue monitor renal function. (4) Anemia of chronic disease improved and stable. pt was found to have iron deficiency anemia. pt is prescribed iron pill. (5) Heme positive stool pt had bowel movement, no blood stool. her HGB increased. pt is advised to followup with colonoscopy as out-pt. pt's home pain meds Aspirin/caffeine/ dihydrocodeine is hold. advise pt can have Tylenol for her chronic on and off headache. pt is prescribed PPI, omeprazole. (6) Hypertension chronic and stable (7) Pleural effusion on left improved/stable. pt had small bilateral pleural effusion. pt is hemdonamically stable. pt had 93% sats on room air. pt has no acute respiratory distress. advise pt followup noncontrast chest CT in 6-8 weeks to ensure resolution of mildly enlarged mediastinal lymph nodes and evaluate for a potential underlying pulmonary nodule. - HPI History of Present Illness: refer from Dr. Reid's HPI on 10/12/2019 [place] female whose only past medical history is that of hypertension. She said that she has had asthma all of her life and uses antihistamines that are [id number] to control the cough and postnasal drip. It happened several times a year and this cycle will be broken by taking Mucinex. Inhalers do not work. She fell at the gym last year, and had a lung contusion resulting in a chronic pleural effusion. She was seen at [facility] and ended up having 2 thoracentesis and then finally a VATS procedure in January 2019. As far she knows she has no cardiac issues. She was not diagnosed with cancer or tuberculosis. She had a period of time being symptom-free from February on. Her main complaint is bilateral lower extremity weakness. She finds that her legs give out from underneath her for about 2 years without any explanation. She has been a little stir crazy having to be inside her [facility] and [place] because of COVID restrictions. About a month and a half ago she noted that she was very winded. More short of breath. And that the cough was coming back. The cough was different than her usual "asthma" cough but she could not say why. She says that there is more sputum production than usual. No fever, no chills, no sweats. 5 days ago she had diarrhea for about 2 or 3 days. The diarrhea was once or twice a day of liquid clear stool. No blood. She has not had any appetite. She can smell and can taste food but she just does not have an appetite. Her primary care provider did a chest x-ray on September 18 and it shows a small left pleural effusion. She had a flu shot a couple of days ago and noted that the next day, yesterday, she aches all over. Especially over where the flu shot was given. Again no fever or chills. For the last 2 days her eyes have been swollen shut with conjunctival matter in the morning. She called her supervisory lifeguard, Dr. Rico yesterday. He is going to see her next week. Today she just "did not look right" so her daughter brought her in. She is worried about the swollen ankles, and the cough that does not go away. This time it is not responsive to her Mucinex as it usually is. In the emergency room temperature was 37.8. Pulse was 106. Blood pressure 127/68 with respirations 20 and 96% on room air. She is hypokalemic at 3.2. In new kidney insufficiency with a BUN of 43 and a creatinine of 2.7. Alk phos is elevated. BNP is mildly elevated at 154. White cell count is normal. Anemic at 9.7 with an MCV of 95. Urinalysis is proteinuria, trace leukocyte Estrace, white cells and red cells but she does have squamous cells. Preliminary chest x-ray has bilateral pulmonary infiltrates and a pleural effusion, left greater than right, progressive when compared to the September 18, 2027 chest x-ray. - HOSPITAL COURSE Hospital Course: Patient was admitted for weakness, patient was found to have bilaterally multi- lobe pneumonia and QUIQUE with dehydration, and hemo-stool. Patient also developed sepsis in the hospital. After treated with antibiotics, clinically patient greatly improved. Patient WBC become normal, patient has no fever, blood culture is negative for bacteremia, patient had a 93% sats on room air. Patient really want to be discharged on today. After intravenous IV fluids for hydration, patient'a creatinine become 1.7 from 2.7 at admission, close to her baseline creatinine 1.4. pt has no more blood stool. pt's HGB is increased. pt was found to have iron deficiency anemia. Patient was prescribed antibiotics doxycycline and Keflex to continue treated for the pneumonia. Patient was advised to have CAT scan of the chest without contrast in 6 to 8 weeks to monitor resolution of nodules. Patient is also advised to have colonoscopy in the outpatient.Patient is prescribed iron pill for his iron deficiency anemia. Patient is advised to have outpatient physical therapist and occupational therapist.Patient is discharged in hemodynamically stable condition. - ALLERGIES Allergies/Adverse Reactions: Allergies Allergy/AdvReac Type Severity Reaction Status Date / Time No Known Drug Allergies Allergy Verified 10/11/19 23:46 - MEDICATIONS Home Medications: Ambulatory Orders Medication Instructions Recorded Confirmed Budesonide/Formoterol Fumarate 2 puffs IH BID 10/12/19 10/12/19 [Symbicort 80-4.5 Mcg Inhaler] amLODIPine [Norvasc] 5 mg PO DAILY 10/12/19 10/12/19 Doxycycline Hyclate 100 mg PO BID #10 tablet. 10/16/19 Ferrous Sulfate [Feosol] 325 mg PO DAILYWM #30 tablet 10/16/19 Omeprazole 20 mg PO DAILY #15 capsule. 10/16/19 Vitamin [Trinatal Rx 1] 1 tab PO DAILYWM #30 tablet 10/16/19 Saccharomyces Boulardii [Florastor] 250 mg PO BIDWM #10 capsule 10/16/19 cephALEXin [Keflex] 250 mg PO Q8H #15 capsule 10/16/19 - PHYSICAL EXAM AT DISCHARGE General Appearance: positive: No acute distress, Alert. negative: Lethargic Eyes Bilateral: positive: Normal inspection, PERRL, No lid inflammation ENT: positive: ENT inspection nml, No signs of dehydration. negative: Purulent nasal drainage, Oral lesions, Dry mucous membranes Neck: positive: Nml inspection, Thyroid nml, Trachea midline. negative: Thyro megaly, Stiff neck, Tracheal deviation Respiratory: positive: Chest non-tender, No respiratory distress. negative: Wheezes, Rales, Rhonchi Cardiovascular: positive: Regular rate & rhythm, No murmur. negative: Tachycardia, Bradycardia, Systolic murmur, Diastolic murmur Peripheral Pulses: positive: 2+ Abdomen: positive: Non-tender, Nml bowel sounds, No distention. negative: Tenderness, Guarding, Rebound Back: positive: Nml inspection. negative: CVA tenderness (R), CVA tenderness (L) Skin: positive: Color nml, No rash, Warm, Dry. negative: Cyanosis, Diaphoresis, Pallor Extremities: positive: Non-tender, Full ROM, Nml appearance. negative: Calf tenderness, Lu's sign/cords Neurologic/Psychiatric: positive: Oriented x3, Motor nml, Sensation nml, Mood/affect nml. negative: Weakness, Sensory loss, Facial droop, Slurred/abnml speech, Depressed mood/affect - LABS Result Diagrams: 10/16/19 12:09 10/16/19 04:37 - SEPSIS Current Stage of Sepsis: Sepsis Possible source of Sepsis: Pulmonary Sepsis Criteria: Recorded Temperature greater than 38.3C or Less than 36C, Recorded Heart Rate greater than 90 bpm, Recorded Respiratory Rate greater than 20, Renal: urine output less than 0.5ml/kg/hr for 2 hours or creatinine gr - FOLLOW UP Follow Up: you were found to have pneumonia, you are prescribed Keflex antibiotics continue to finish the treatment course. you were found to have iron deficiency anemia, iron pill is prescribed for you. Your HGB is increased, you have no more blood stool. your home aspirin/caffeine/ dihydrocodeine is hold now. you are prescribed PPI omeprazole now. advise you followup with your PCP and vacuum drier operator to have colonoscopy as out-pt. you presented dehydration and increased creatinine at the admission, now it is improved. advise you keep hydration and followup with your PCP to have blood work and continue monitor your kidney function as well. advise pt followup noncontrast chest CT in 6-8 weeks to ensure resolution of mildly enlarged mediastinal lymph nodes and evaluate for a potential underlying pulmonary nodule. advise pt followup with her PCP to have out-PT/OT - TIME SPENT Time Spent in Discharge (Minutes): 30
[2019-10-16 17:16] VITALS: BP 133/64
[2019-10-16] MEDS ORDERED: FORMOTEROL FUMARATE NEB 20 MCG/2 ML INH SCH (19:00)
[2019-10-16] MEDS ORDERED: BUDESONIDE 0.5 MG/2 ML NEB INH SCH (19:00)
[2019-10-17 14:12] LABS: MYCOPLASMA PNEUMONIAE IGG 0.96
== END 2019-10-16 18:10 | disposition home or self-care (01) | DRG 193 ==
LOC: ED 23:25 → MS3 10-12 01:08 → MS2 10-15 16:01
PROVIDERS: ADMIT Specialist; ATTEND Nurse Practitioner Gerontology
DX: J18.9 Pneumonia, unspecified organism (principal); A41.9 Sepsis, unspecified organism; R65.20 Severe sepsis without septic shock; N17.9 Acute kidney failure, unspecified; I10 Essential (primary) hypertension; J90 Pleural effusion, not elsewhere classified; E87.6 Hypokalemia; E86.0 Dehydration; I12.9 Hypertensive chronic kidney disease with stage 1 through stage 4 chronic kidney disease, or unspecified chronic kidney disease; N18.9 Chronic kidney disease, unspecified; D50.9 Iron deficiency anemia, unspecified; D63.8 Anemia in other chronic diseases classified elsewhere; J45.909 Unspecified asthma, uncomplicated; R19.5 Other fecal abnormalities; R59.0 Localized enlarged lymph nodes; G89.29 Other chronic pain; M47.816 Spondylosis without myelopathy or radiculopathy, lumbar region; Z20.828 Contact with and (suspected) exposure to other viral communicable diseases; R32 Unspecified urinary incontinence; B30.9 Viral conjunctivitis, unspecified; R19.7 Diarrhea, unspecified; H26.9 Unspecified cataract; H91.90 Unspecified hearing loss, unspecified ear; Z74.09 Other reduced mobility; Z87.891 Personal history of nicotine dependence; Z91.81 History of falling; Z79.82 Long term (current) use of aspirin; Z79.51 Long term (current) use of inhaled steroids; Z79.899 Other long term (current) drug therapy
CPT/HCPCS: 36415; 71045; 71046; 71250; 80048; 80053; 81001; 82274; 82607; 82728; 83540; 83615; 83690; 83735; 83880; 84100; 84443; 84466; 85014; 85018; 85025; 85045; 86738; 87040; 87086; 99284; 99285; A9270; J1650; J7120; U0004; 81003

== ENCOUNTER 2019-10-26 08:52 | Outpatient (CLI) | payer MEDICARE | END 2019-10-26 08:53 | disposition home or self-care (01) | LOC: DI 08:52 | PROVIDERS: ATTEND Internal Medicine Critical Care Medicine | DX: R06.02 Shortness of breath (principal) | CPT/HCPCS: 93306 ==

== ENCOUNTER 2020-06-01 15:44 | Emergency (ER) | payer MEDICARE ==
[2020-06-01] MEDS ORDERED: DOXEPIN 10 MG CAPSULE PO STA (16:01)
[2020-06-01] MEDS ORDERED: predniSONE 20 MG TABLET PO STA (16:01)
--- NOTE | 2020-06-01 16:01 | ED Physician Documentation ---
History of Present Illness - Stated complaint Stated Complaint: POSSIBLE RASH - History obtained from History obtained from: Patient - Additonal information Additional information: This is a duncan 84-year-old woman with history of hypertension who presents for evaluation of rash starting last night. It started off side of the neck. It is very itchy. She also has it on the back. She notes that where she itches she kind of breaks out with a rash. She had coconut shrimp the night before and thinks that might be related. She would also like a refill of her blood pressure medication. Review of Systems Constitutional: denies: Fever, Chills Ears: reports: Reviewed and negative Nose: reports: Reviewed and negative Throat: reports: Reviewed and negative Cardiac: reports: Reviewed and negative PD PAST MEDICAL HISTORY - Past Medical History Cardiovascular: Hypertension Respiratory: Asthma Neuro: None Endocrine/Autoimmune: None GI: None ELECTRIC METER SETTER: None : None HEENT: None Psych: None Musculoskeletal: None Derm: None - Past Surgical History Past Surgical History: Yes HEENT: Cataracts - Present Medications Home Medications: Ambulatory Orders Medication Instructions Recorded Confirmed Budesonide/Formoterol Fumarate 2 puffs IH BID 10/12/19 10/12/19 [Symbicort 80-4.5 Mcg Inhaler] amLODIPine [Norvasc] 5 mg PO DAILY 10/12/19 10/12/19 Doxycycline Hyclate 100 mg PO BID #10 tablet. 10/16/19 Ferrous Sulfate [Feosol] 325 mg PO DAILYWM #30 tablet 10/16/19 Omeprazole 20 mg PO DAILY #15 capsule. 10/16/19 Vitamin [Trinatal Rx 1] 1 tab PO DAILYWM #30 tablet 10/16/19 Saccharomyces Boulardii [Florastor] 250 mg PO BIDWM #10 capsule 10/16/19 cephALEXin [Keflex] 250 mg PO Q8H #15 capsule 10/16/19 Doxepin [SINEquan] 10 mg PO TID PRN #20 cap 06/01/20 amLODIPine [Norvasc] 5 mg PO DAILY #30 tablet 06/01/20 predniSONE [Deltasone] 40 mg PO DAILY 5 Days #10 tablet 06/01/20 - Allergies Allergies/Adverse Reactions: Allergies Allergy/AdvReac Type Severity Reaction Status Date / Time No Known Drug Allergies Allergy Verified 10/11/19 23:46 - Social History Does the pt smoke?: No Smoking Status: Never smoker Does the pt drink ETOH?: No Does the pt have substance abuse?: No - Immunizations Immunizations are current?: No Immunizations: TDAP >10years/unknown - POLST Patient has POLST: No POLST Status: Full Code PD ED PE NORMAL - Vitals Vital signs reviewed: Yes - General General: Alert and oriented X 3, No acute distress - Respiratory Respiratory: No respiratory distress, Clear bilaterally - Derm Derm: Other (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 Do not drink or drive while taking doxepin the antiitch medicine because it will make you sleepy. Follow-up with your physician.
[2020-06-01 16:09] VITALS: BP 194/138
--- OUTSIDE RECORDS SUMMARY | 2020-06-01 16:11 | EXTERNAL MEDICAL SUMMARY RPT | Continuity of Care Document ---
:1935 Demographics Phone Unavailable Preferred Language Unknown Marital Status Unknown Tenriism Affiliation Unknown Race Unknown Ethnic Group Unknown Author Organization [facility] Address [address] [id number] Phone Social History date description facility [id number]
== END 2020-06-01 16:27 | disposition home or self-care (01) ==
LOC: ED 15:44
DX: L50.9 Urticaria, unspecified (principal); I10 Essential (primary) hypertension
CPT/HCPCS: 99283; A9270; J7512

== ENCOUNTER 2020-07-28 12:19 | Outpatient (CLI) | payer MEDICARE ==
[2020-07-28 14:41] LABS: BASOPHILS # (AUTO) 0.1 10^3/uL (0.0-0.1); BASOPHILS % (AUTO) 1.2 %; EOSINOPHILS # (AUTO) 0.9 10^3/uL (0.0-0.7); EOSINOPHILS % (AUTO) 13.6 %; HCT - HEMATOCRIT 33.9 % (37.0-47.0); HGB - HEMOGLOBIN 10.6 g/dL (12.0-16.0); LYMPHOCYTES % (AUTO) 30.4 %; MEAN CORPUSCULAR HEMOGLOBIN 31.8 pg (27.0-31.0); MEAN CORPUSCULAR HGB CONC 31.3 g/dL (32.0-36.0); MEAN CORPUSCULAR VOLUME 101.8 fL (81.0-99.0); MEAN PLATELET VOLUME 10.1 fL (7.9-10.8); MONOCYTES # (AUTO) 0.6 10^3/uL (0.0-1.0); MONOCYTES % (AUTO) 9.2 %; NEUTROPHILS # (AUTO) 2.9 10^3/uL (1.5-6.6); NEUTROPHILS % (AUTO) 45.3 %; PLT - PLATELET COUNT 267 10^3/uL (130-450); RED BLOOD COUNT 3.33 10^6/uL (4.20-5.40); RED CELL DISTRIBUTION WIDTH 12.9 % (12.0-15.0); WHITE BLOOD COUNT 6.4 x10^3/uL (4.8-10.8)
[2020-07-28 15:41] LABS: ALBUMIN 3.7 g/dL (3.2-5.5); ALBUMIN/GLOBULIN RATIO 0.9 (1.0-2.2); BILIRUBIN,TOTAL 0.6 mg/dL (0.2-1.0); CALCIUM 8.9 mg/dL (8.5-10.3); CREATININE 1.5 mg/dL (0.4-1.0); POTASSIUM 4.2 mmol/L (3.5-5.0); TOTAL PROTEIN 7.6 g/dL (6.7-8.2)
== END 2020-07-28 12:20 | disposition home or self-care (01) ==
LOC: LAB.S 12:19
PROVIDERS: ATTEND Internal Medicine
DX: I10 Essential (primary) hypertension (principal)
CPT/HCPCS: 36415; 80053; 85025

== ENCOUNTER 2020-08-01 14:37 | Outpatient (CLI) | payer MEDICARE ==
--- NOTE | 2020-08-01 16:15 | Ultrasound Report ---
PROCEDURE: Ankle Brachial Index INDICATIONS: INTERMITTENT CLAUDICATION TECHNIQUE: Ankle-brachial indices were obtained bilaterally and recorded. COMPARISONS: None. FINDINGS: Right ankle brachial index (MICHAEL): 1.1 Left ankle brachial index (MICHAEL): 0.9 Healing potential: Ankle pressures >55 mm Hg in non-diabetics and >80 mm Hg in diabetics are likely to achieve primary h ealing of ischemic foot ulcers. Toe pressures >30 mm Hg are likely to achieve primary healing of ischemic foot ulcers, toe or transme tatarsal amputations. IMPRESSION: Normal ankle brachial indices. Reviewed by: Tavon Lima MD on 08/01/2020 4:13 PM PDT Approved by: Tavon Lima MD on 08/01/2020 4:13 PM PDT Station ID: [id number]
== END 2020-08-01 14:38 | disposition home or self-care (01) ==
LOC: DI 14:37
PROVIDERS: ATTEND Internal Medicine
DX: I73.9 Peripheral vascular disease, unspecified (principal)
CPT/HCPCS: 93922

== ENCOUNTER 2020-10-24 13:57 | Outpatient (CLI) | payer MEDICARE | END 2020-10-24 23:59 | disposition home or self-care (01) | LOC: LAB.N 13:57 | PROVIDERS: ATTEND Family Medicine | DX: N39.0 Urinary tract infection, site not specified (principal) | CPT/HCPCS: 87077; 87086; 87181 ==

== ENCOUNTER 2021-01-23 12:05 | Outpatient (CLI) | payer MEDICARE ==
--- NOTE | 2021-01-23 16:29 | DEXA Report ---
PROCEDURE: Dexa Spine and/or Hip INDICATIONS: OSTEOPENIA TECHNIQUE: Dual energy x-ray absorptiometry (DXA) was performed on a [employer]. Regions measur ed are the AP Spine, femoral neck, and if needed forearm. COMPARISON: 12/19/2017. FINDINGS: Lumbar Spine: Bone Mineral Density 1.003 g/cm/cm,T score -1.5. There is interval 4.8% decrease in total lumbar s pine bone mineral density Left Hip: Bone Mineral Density 0.729 g/cm/cm,T score there is interval 2.2% decrease in total left hip bone mi neral density. Left Femoral Neck: Bone Mineral Density 0.670 g/cm/cm, T score -2.6. (T score greater or equal to -1.0: NORMAL) (T score from -1.1 to -2.4: OSTEOPENIA) (T score less than or equal to -2.5 to: OSTEOPOROSIS) Impression: Osteoporosis. Patients with diagnosis of osteoporosis or osteopenia should have regular bone mineral density assess ment. For those eligible for Medicare, routine testing is allowed once every 2 years. Testing frequ ency can be increased for patients who have rapidly progressing disease or for those who are receivin g medical therapy to restore bone mass. Reviewed by: Zaid Castro MD on 01/23/2021 4:28 PM PST Approved by: Zaid Castro MD on 01/23/2021 4:28 PM PST Station ID: [id number]
== END 2021-01-23 12:06 | disposition home or self-care (01) ==
LOC: DI 12:05
PROVIDERS: ATTEND Nurse Practitioner Family
DX: M81.0 Age-related osteoporosis without current pathological fracture (principal)

== ENCOUNTER 2021-01-23 12:37 | Outpatient (CLI) | payer MEDICARE ==
[2021-01-23] MEDS ORDERED: ALBUTEROL 1 PUFF INH STA (14:09)
== END 2021-01-23 12:38 | disposition home or self-care (01) ==
LOC: RT 12:37
PROVIDERS: ATTEND Nurse Practitioner Family
DX: J44.9 Chronic obstructive pulmonary disease, unspecified (principal); M81.0 Age-related osteoporosis without current pathological fracture
CPT/HCPCS: 94060

== ENCOUNTER 2021-05-12 14:49 | Outpatient (CLI) | payer MEDICARE ==
--- NOTE | 2021-05-13 10:19 | CT Report ---
PROCEDURE: Abdomen/Pelvis WO INDICATIONS: RECURRENT UTI TECHNIQUE: Noncontrast 5 mm thick sections acquired from the diaphragms to the symphysis. 5 mm coronal and sagi ttal reformats were then performed. For radiation dose reduction, the following was used: automated exposure control, adjustment of mA and/or kV according to patient size. COMPARISON: None. FINDINGS: Image quality: Excellent. ABDOMEN: Lung bases: Lung bases demonstrate bronchiectasis and scarring. Trace right pleural effusion. Solid organs: Liver and spleen are normal in size. A hypodensity with a coarse calcification in the right lobe posteriorly is unchanged compared to the prior CT on October 13, 2019. Gallbladder conta ins layering high density consistent with stones/sludge. Pancreas is normal in contours. No adrenal nodules. Kidneys are normal in size, without hydronephrosis or nephrolithiasis. Peritoneum and bowel: Moderate sized hiatal hernia. The stomach is otherwise normal. Small bowel has a normal caliber and appearance. The large bowel contains increased stool consistent with constipatio n. Diverticulosis with no evidence of diverticulitis. Nodes and vessels: No retroperitoneal or mesenteric adenopathy by size criteria. Aorta and inferior vena cava are normal in caliber. The aorta has atherosclerotic calcifications. Miscellaneous: No ventral hernias. PELVIS: Genitourinary: Bladder wall thickness is normal. Miscellaneous: No inguinal hernias or adenopathy. Bones: No suspicious bony lesions. No vertebral body compression fractures. IMPRESSION: 1.Moderate-sized hiatal hernia. 2.Cholelithiasis without evidence of cholecystitis. 3.Diverticulosis without evidence of diverticulitis. 4.Bronchiectasis and scarring in the posterior lung bases with a trace right pleural effusion. 5.Stable hypodense focus in the posterior right lobe of the liver is unchanged since 2019 and is ther efore presumed benign. Reviewed by: Emery Fisher on 05/13/2021 10:17 AM PDT Approved by: Emery Fisher on 05/13/2021 10:17 AM PDT Station ID: [id number]
== END 2021-05-12 14:50 | disposition home or self-care (01) ==
LOC: DI 14:49
PROVIDERS: ATTEND Nurse Practitioner Family
DX: K44.9 Diaphragmatic hernia without obstruction or gangrene (principal); K80.20 Calculus of gallbladder without cholecystitis without obstruction; K57.30 Diverticulosis of large intestine without perforation or abscess without bleeding; J47.9 Bronchiectasis, uncomplicated; J90 Pleural effusion, not elsewhere classified; R16.0 Hepatomegaly, not elsewhere classified; N39.0 Urinary tract infection, site not specified

== ENCOUNTER 2021-11-22 12:56 | Outpatient (CLI) | payer MEDICARE | END 2021-11-22 12:57 | disposition critical access hospital (66) | LOC: EMS 12:56 | DX: R53.1 Weakness (principal); S09.90XA Unspecified injury of head, initial encounter; W18.39XA Other fall on same level, initial encounter; Y93.89 Activity, other specified; Y92.481 Parking lot as the place of occurrence of the external cause | CPT/HCPCS: A0425; A0427 ==

== ENCOUNTER 2021-11-22 13:15 | Emergency (ER) | payer MEDICARE ==
--- NOTE | 2021-11-22 13:36 | ED Physician Documentation ---
History of Present Illness - Stated complaint Stated Complaint: WEAKNESS/GLF - Chief complaint Chief Complaint: Trauma Hd/Nk - Additonal information Additional information: 86-year-old female is brought to the emergency department in a rigid cervical Collar after ground-level fall earlier this afternoon. She reports that she has been going to physical therapy because she has been having increasing weakness. She was using a new device that she describes is like a frame and she was trying to maneuver it when it tipped over and she fell with it. She struck the back of her head on the ground. Did not lose consciousness. She is not anticoagulated. She reports that her doctor told her recently that she was anemic and she has been getting B12 injections. Prior to the fall she denies chest pain or shortness of air. She is neurolog ically intact at this time with no focal deficits. NIHSS is 0 Review of Systems Constitutional: denies: Fever, Chills Eyes: reports: Reviewed and negative Ears: denies: Loss of hearing, Ear pain, Drainage/discharge, Tinnitus/ringing, Foreign body, Reviewed and negative, Other Throat: reports: Reviewed and negative Cardiac: reports: Reviewed and negative Respiratory: reports: Reviewed and negative GI: reports: Reviewed and negative : reports: Reviewed and negative Skin: reports: Reviewed and negative Musculoskeletal: reports: Neck pain. denies: Back pain, Extremity pain, Joint pain Neurologic: reports: Reviewed and negative Psychiatric: reports: Reviewed and negative PD PAST MEDICAL HISTORY - Past Medical History Cardiovascular: Hypertension Respiratory: Asthma Neuro: None Endocrine/Autoimmune: None GI: None VERIFIER: None : None HEENT: None Psych: None Musculoskeletal: None Derm: None - Past Surgical History Past Surgical History: Yes HEENT: Cataracts - Present Medications Home Medications: Ambulatory Orders Medication Instructions Recorded Confirmed amLODIPine [Norvasc] 5 mg PO DAILY 10/12/19 06/01/20 Ferrous Sulfate [Feosol] 325 mg PO DAILYWM #30 tablet 10/16/19 06/01/20 Omeprazole 20 mg PO DAILY #15 capsule. 10/16/19 06/01/20 Vitamin [Trinatal Rx 1] 1 tab PO DAILYWM #30 tablet 10/16/19 06/01/20 Saccharomyces Boulardii [Florastor] 250 mg PO BIDWM #10 capsule 10/16/19 06/01/20 Doxepin [SINEquan] 10 mg PO TID PRN #20 cap 06/01/20 amLODIPine [Norvasc] 5 mg PO DAILY #30 tablet 06/01/20 predniSONE [Deltasone] 40 mg PO DAILY 5 Days #10 tablet 06/01/20 - Allergies Allergies/Adverse Reactions: Allergies Allergy/AdvReac Type Severity Reaction Status Date / Time No Known Drug Allergies Allergy Verified 06/01/20 16:09 - Social History Does the pt smoke?: No Smoking Status: Never smoker Does the pt drink ETOH?: No Does the pt have substance abuse?: No - Immunizations Immunizations are current?: No Immunizations: TDAP >10years/unknown - POLST Patient has POLST: No POLST Status: Full Code PD ED PE NORMAL - General General: Alert and oriented X 3, No acute distress, Well developed/nourished - HEENT HEENT: PERRL, EOMI, Ears normal, Moist mucous membranes, Pharynx benign, Other (Superficial abrasion posterior occiput.) - Neck Neck: Supple, no meningeal sign, No adenopathy, Other (Patient is in a rigid cervical collar placed by EMS. No tenderness elicited with palpation of the cervical or paraspinous muscles) - Cardiac Cardiac: RRR, No murmur - Respiratory Respiratory: No respiratory distress, Clear bilaterally - Abdomen Abdomen: Normal bowel sounds - Back Back: No CVA TTP, No spinal TTP (No spinous tenderness elicited of palpation of the thoracic or lumbar spine. No crepitus, step-off or deformity.) - Derm Derm: Normal color, Warm and dry - Extremities Extremities: No deformity, No tenderness to palpate, Normal ROM s pain, Other (Motor strength 5 of 5 bilateral lower extremities. No pain elicited with palpation of the pelvic girdle. No pain of the hip with internal or external rotation bilaterally) - Neuro Neuro: Alert and oriented X 3, pourer off 2-12 intact Eye Opening: Spontaneous Motor: Obeys Commands Verbal: Oriented GCS Score: 15 - Psych Psych: Normal mood Results - Vitals Vitals: Vital Signs - 24 hr 11/22/21 11/22/21 11/22/21 13:23 15:12 15:54 Temperature 37.1 C Heart Rate 82 83 82 Respiratory 18 17 20 Rate Blood Pressure 152/81 H 169/88 H 180/60 H O2 Saturation 96 98 98 Oxygen O2 Source Room air - EKG (time done) 1319 Rate: Rate (enter#) (85) Rhythm: NSR [place]: Normal Intervals: Normal NH. No: Prolonged QT QRS: No: Poor R wave progression (Abnormal R wave progression.) Ischemia: Q waves (Inferior leads, 2 3 and aVF) Compare to prior EKG: Old EKG unavailable Computer interpretation: Agree with computer - Labs Labs: Laboratory Tests 11/22/21 11/22/21 13:39 13:39 WBC 7.4 RBC 3.09 L Hgb 9.9 L Hct 32.5 L MCV 105.2 H MCH 32.0 H MCHC 30.5 L RDW 12.7 Plt Count 243 MPV 10.0 Neut # (Auto) 4.7 Lymph # (Auto) 1.4 L [place] # (Auto) 0.5 Eos # (Auto) 0.6 Baso # (Auto) 0.1 Absolute Nucleated RBC 0.00 Nucleated RBC % 0.0 Sodium 142 Potassium 4.8 Chloride 115 H Carbon Dioxide 21 Anion Gap 6.0 BUN 33 H Creatinine 1.9 H Estimated GFR (MDRD) 25 L Glucose 93 Calcium 8.9 Total Bilirubin 0.4 AST 14 ALT 11 Alkaline Phosphatase 114 Total Protein 6.9 Albumin 3.4 Globulin 3.5 Albumin/Globulin Ratio 1.0 Lipase 45 - Rads (name of study) cervical ct Radiology: Final report received (No acute fracture or traumatic subluxation of cervical spine. Mild overall spondylolisthesis. Left upper rib deformities are age-indeterminate probably not acute) CT head Radiology: Final report received (No acute intracranial abnormality. Moderate volume loss. Partially seen sinus disease, correlate clinically) left ribs with PA chest Radiology: Final report received (Remote rib fractures are seen which are stable compared to 2020. No new rib fractures identified. No pneumothorax.) PD MEDICAL DECISION MAKING - ED course Complexity details: reviewed results, re-evaluated patient, considered differential, d/w patient ED course: 86-year-old female presents emergency department for evaluation of closed head injury after ground-level fall this afternoon which she was using a new walker/assistive device and I began to fall and she fell with it. She did strike the back of her head on concrete but did not lose consciousness. She is not anticoagulated. She arrived here in the emergency department in a rigid cervical collar but otherwise appeared well with no focal deficits. She does report being treated for anemia by her primary care provider and is receiving vitamin B12 infusions. CBC today does show a hemoglobin of 9.9 which is just at or above her typical baseline. She is denying any melena. She is uncertain of her last colonoscopy and I have made the recommendation that she seek out a GI referral to have this completed. She is not anticoagulated. Subsequent CT imaging of the head and cervical spine did not show any acute bruising or bleeding of the brain and no cervical spine fractures. There is an incidental note made of some likely subacute left-sided rib fractures. The patient denies any falls for more than a year and I was unable to elicit any rib or chest wall tenderness. However given the finding of a remote rib fracture subsequent x-ray imaging of the chest and ribs was completed to rule out any acute injury and/or pneumothorax though she is not hypoxic. This imaging was negative for any acute findings. I personally removed the cervical collar. No spinous tenderness was elicited she had full range of motion of the cervical spine in all planes without tenderness elicited. Patient was able to ambulate easily with the nursing staff with no weakness noted. She is discharged home in stable condition. Emergent return precautions discussed Departure - Departure Disposition: 01 Home, Self Care Clinical Impression: Fall from ground level Contusion of scalp Qualifiers: Encounter type: initial encounter Qualified Code(s): S00.03XA - Contusion of scalp, initial encounter Anemia Qualifiers: Anemia type: unspecified type Qualified Code(s): D64.9 - Anemia, unspecified Condition: Stable Instructions: ED Head Injury Closed Comments: Jolanta was seen today in the emergency department after ground-level fall today. She does have a superficial contusion or bruise to the back of her head. I expect this to simply heal well with time. We did do a CT of her head and neck and did not find any bruising or bleeding within the brain. There are no neck fractures. The imaging however does show some older left-sided rib fractures that do not appear to be causing her any discomfort or pain. She does have some anemia. She should continue the B12 infusions with her primary care doctor. However given her age I do make the recommendation that she be evaluated with a colonoscopy to make sure that there is not any polyps or cancer that could be contributing to the anemia. Reasons to return to the emergency department over the next few days or week would include sudden severe headache, uncontrolled vomiting, any confusion, focal weakness in her arms, legs or slurred speech. She can continue to participate in physical therapy and take her other usual routine prescribed medications Discharge Date/Time: 11/22/21 15:55
[2021-11-22 13:44] LABS: BASOPHILS # (AUTO) 0.1 10^3/uL (0.0-0.1); BASOPHILS % (AUTO) 1.2 %; EOSINOPHILS # (AUTO) 0.6 10^3/uL (0.0-0.7); EOSINOPHILS % (AUTO) 8.6 %; HCT - HEMATOCRIT 32.5 % (37.0-47.0); HGB - HEMOGLOBIN 9.9 g/dL (12.0-16.0); LYMPHOCYTES # (AUTO) 1.4 10^3/uL (1.5-3.5); LYMPHOCYTES % (AUTO) 19.3 %; MEAN CORPUSCULAR HGB CONC 30.5 g/dL (32.0-36.0); MEAN CORPUSCULAR VOLUME 105.2 fL (81.0-99.0); MONOCYTES # (AUTO) 0.5 10^3/uL (0.0-1.0); MONOCYTES % (AUTO) 6.6 %; NEUTROPHILS # (AUTO) 4.7 10^3/uL (1.5-6.6); NEUTROPHILS % (AUTO) 63.9 %; PLT - PLATELET COUNT 243 10^3/uL (130-450); RED BLOOD COUNT 3.09 10^6/uL (4.20-5.40); RED CELL DISTRIBUTION WIDTH 12.7 % (12.0-15.0); WHITE BLOOD COUNT 7.4 x10^3/uL (4.8-10.8)
--- OUTSIDE RECORDS SUMMARY | 2021-11-22 13:51 | EXTERNAL MEDICAL SUMMARY RPT | Continuity of Care Document ---
:1935 Author Organization [facility] Address [address] [place] [address] Phone Allergies No information. Encounters No information. Functional Status No information. Immunizations No information. Medications date description facility [id number] sulfamethoxazole-trimethoprim [facility] [place] [id number]+0000 sulfamethoxazole-trimethoprim [facility] [place] Problems No information. Procedures date description facility [id number] Visit Code Hold [facility] [place] [id number] Visit Code Hold [facility] [place] [id number]+0000 POC URINALYSIS DIP [facility] [place] [id number] Urinalysis with Microscopic [facility] Exam, Culture in Indicated Ancillary Ser vices [place] Results/Labs No information. Social History date description facility [id number] Former smoker [facility] [place] [id number]+0000 Former smoker [facility] [place] Vital Signs date measurement value units [id number]+0000 BMI BMI 24.93 kg/m2 [id number]+0000 BP_diastolic BP_diastolic 82 mm[H g] [id number]+0000 BP_systolic BP_systolic 144 mm[Hg] [id number]+0000 heart_rate heart_rate 85 /min [id number]+0000 height_metric height_metric 158.75 cm [id number]+0000 height_standard height_standard 62.5 in [id number]+0000 respiration_rate respiration_rate 16 /min [id number]+0000 temperature_metric temperature_metric 36.28 C [id number]+0000 temperature_standard temperature_standard 9 7.3 F [id number]+0000 weight_metric weight_metric 62.6 kg +0000 weight_standard weight_standard 138 lb +0000 BMI BMI 24.39 kg/m2 +0000 BP_diastolic BP_diastolic 89 mm[H g] +0000 BP_systolic BP_systolic 157 mm[Hg] +0000 heart_rate heart_rate 82 /min +0000 height_metric height_metric 158.75 cm +0000 height_standard height_standard 62.5 in +0000 respiration_rate respiration_rate 16 /min +0000 temperature_metric temperature_metric 36.33 C +0000 temperature_standard temperature_standard 9 7.4 F +0000 weight_metric weight_metric 61.23 kg +0000 weight_standard weight_standard 135 lb
[2021-11-22 13:58] LABS: ALBUMIN 3.4 g/dL (3.2-5.5); BILIRUBIN,TOTAL 0.4 mg/dL (0.2-1.0); CALCIUM 8.9 mg/dL (8.5-10.3); CREATININE 1.9 mg/dL (0.4-1.0); POTASSIUM 4.8 mmol/L (3.5-5.0); TOTAL PROTEIN 6.9 g/dL (6.7-8.2)
[2021-11-22] MEDS ORDERED: SODIUM CHLORIDE 0.9% 1,000 ML IV STA (14:00)
--- NOTE | 2021-11-22 14:46 | CT Report ---
PROCEDURE: CERVICAL SPINE WO INDICATIONS: ITS.REASON: Ground-level fall, TECHNIQUE: Noncontrast 3 mm thick sections acquired from the skull base to the T4 level. Sagittal and coronal r eformats were then constructed. For radiation dose reduction, the following was used: automated exp osure control, adjustment of mA and/or kV according to patient size. COMPARISON: None. FINDINGS: Image quality: Excellent Bones: No spondylolisthesis. Vertebral body heights are well-maintained. Mild spondylosis overall. Soft tissues: No actionable thyroid nodule identified. Her rib deformities are partially seen, probab ly nonacute. Suspected basal atelectasis. IMPRESSION: No acute fracture or traumatic subluxation of the cervical spine. Mild overall spondylosis. Left upper rib deformities are age-indeterminate, probably not acute. Reviewed by: Tang Roque MD on 11/22/2021 2:45 PM PDT Approved by: Tang Roque MD on 11/22/2021 2:45 PM PDT Station ID: [id number]
--- NOTE | 2021-11-22 14:49 | CT Report ---
PROCEDURE: HEAD WO INDICATIONS: ITS.REASON: Ground-level fall, posterior occiput contusion TECHNIQUE: Noncontrast 4.5 mm thick angled axial sections acquired from the foramen magnum to the vertex. For r adiation dose reduction, the following was used: automated exposure control, adjustment of mA and/or kV according to patient size. COMPARISON: None. FINDINGS: Image quality: Motion degraded CSF spaces: Basal cisterns are patent. Lateral ventricles are symmetric. Volume: Periventricular white matter hypoattenuation is commonly seen with chronic small vessel disea se. Volume loss is present. These findings are moderate. Brain: No intracranial hemorrhage. Green-white differentiation is grossly maintained. There are vascul ar calcifications. Craniofacial structures: Partially seen sinus fluid and near complete opacification. Left mastoid eff usion. Posterior scalp contusion. IMPRESSION: No acute intracranial abnormality. Moderate volume loss. Partially seen sinus disease, correlate clin ically. Reviewed by: Tang Roque MD on 11/22/2021 2:48 PM PDT Approved by: Tang Roque MD on 11/22/2021 2:48 PM PDT Station ID: [id number]
--- NOTE | 2021-11-22 15:53 | XRAY Report ---
PROCEDURE: Ribs w/PA Chest LT INDICATIONS: ITS.REASON: ? old left rib fx TECHNIQUE: 2 views of the left ribs were acquired, along with a single view chest. COMPARISON: Chest radiograph, 10/12/2019 FINDINGS: Surgical changes and devices: None. Bones and chest wall: Several remote left superior posterior rib fractures are seen, which are simila r to 2020. No definite acute appearing fractures can be seen. No suspicious bony lesions. Age-approp riate degenerative changes are seen. Overlying soft tissues appear unremarkable. Lungs and pleura: No pleural effusions or pneumothorax. Lungs appear clear. Mediastinum: Mediastinal contours appear normal. Heart size is normal. IMPRESSION: Remote rib fractures are seen, which are stable compared to 2020. No new rib fractures are seen. No pneumothorax. Reviewed by: Ramy Sifuentes MD on 11/22/2021 2:52 PM [id number] Approved by: Ramy Sifuentes MD on 11/22/2021 2:52 PM PATRICIA Station ID: [id number]
[2021-11-22 15:55] VITALS: BP 180/60
== END 2021-11-22 15:55 | disposition home or self-care (01) ==
LOC: EDUNIT# → ED 13:15
DX: S00.03XA Contusion of scalp, initial encounter (principal); D64.9 Anemia, unspecified; W01.0XXA Fall on same level from slipping, tripping and stumbling without subsequent striking against object, initial encounter
CPT/HCPCS: 36415; 80053; 83690; 85025; 93005; 99283; 99284

== ENCOUNTER 2022-04-02 20:24 | Emergency (ER) | payer OTHER, MEDICARE ==
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
--- OUTSIDE RECORDS SUMMARY | 2022-04-02 21:45 | EXTERNAL MEDICAL SUMMARY RPT | Continuity of Care Document ---
:1935 Author Organization [facility] Address [address] [place] [address] Phone Care Team Providers Name Role Phone Unavailable Unavailable Unavailable Rico, Provider Unavailable Unavailable Allergies No information. Encounters No information. Functional Status No information. Immunizations No information. Medications date description facility 2022-02-11 00:00 famotidine [facility] 2022-02-11 00:00 prednisone [facility] 2022-02-11 00:00 hydroxyzine hcl [facility] 2022-02-11 00:00 diphenhydramine hcl [facility] 2022-02-11 00:00 hydroxyzine hcl [facility] 2022-02-11 00:00 diphenhydramine hcl [facility] 2022-02-11 00:00 prednisone [facility] 2022-02-11 00:00 prednisone [facility] 2022-02-16 00:00 amlodipine [facility] 2022-02-11 00:00 famotidine [facility] 2022-02-16 00:00 amlodipine [facility] 2022-02-11 00:00 famotidine [facility] 2022-02-11 00:00 prednisone [facility] 2022-02-16 00:00 amlodipine [facility] 2022-02-16 00:00 losartan [facility] 2022-02-16 00:00 losartan [facility] 2022-02-11 00:00 diphenhydramine hcl [facility] 2022-02-11 00:00 famotidine [facility] 2022-02-11 00:00 diphenhydramine hcl [facility] 2022-02-11 00:00 hydroxyzine hcl [facility] 2022-02-16 00:00 amlodipine [facility] 2022-02-16 00:00 losartan [facility] 2022-02-16 00:00 losartan [facility] 2022-02-11 00:00 hydroxyzine hcl [facility] Problems date description facility 2022-02-11 00:00 Eruption [facility] 2022-02-11 00:00 Rash and other nonspecific skin [facility] Procedures date description facility 2022-02-11 00:00 Visit Code Hold [facility] Results/Labs No information. Social History date description facility 2022-02-11 00:00 Former smoker [facility] [place] Vital Signs date measurement value units 2022-02-11 00:00 BMI 24.02 kg/m2 2022-02-11 00:00 BP_diastolic 92 mmHg 2022-02-11 00:00 BP_systolic 169 mmHg 2022-02-11 00:00 heart_rate 96 /min 2022-02-11 00:00 height_metric 158.75 cm 2022-02-11 00:00 height_standard 62.5 in 2022-02-11 00:00 weight_metric 60.33 kg 2022-02-11 00:00 weight_standard 133 lb
[2022-04-02] MEDS ORDERED: KETOROLAC 30 MG/ML VIAL IM STA (21:51)
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
[2022-04-02 22:32] VITALS: BP 221/105
== END 2022-04-02 22:36 | disposition home or self-care (01) ==
LOC: ED 20:24
DX: S20.211A Contusion of right front wall of thorax, initial encounter (principal); S22.31XA Fracture of one rib, right side, initial encounter for closed fracture; V49.49XA Driver injured in collision with other motor vehicles in traffic accident, initial encounter; Y93.89 Activity, other specified; Y92.410 Unspecified street and highway as the place of occurrence of the external cause
CPT/HCPCS: 96372; 99283; 99284